=== PATIENT | female | born 2005 ===

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

== ENCOUNTER 2023-12-01 08:20 | Outpatient (REF) | payer OTHER, SELFPAY ==
--- NOTE | ~2023-12-01 | XR_ITS ---
EXAMINATION: XR KNEE, BILATERAL STANDING XR LATERAL AND SUNRISE VIEWS OF BILATERAL KNEES CLINICAL INFORMATION: Bilateral knee pain. COMPARISON: 02/19/2018 left knee. TECHNIQUE: AP standing as well as lateral and sunrise views of bilateral knees. FINDINGS: Left Knee: No significant joint effusion. Mild medial joint space narrowing. Alignment preserved. Right Knee: No significant joint effusion. Mild medial joint space narrowing. Alignment preserved. 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
--- NOTE | ~2023-12-01 | XR_ITS ---
EXAMINATION: XR KNEE, BILATERAL STANDING XR LATERAL AND SUNRISE VIEWS OF BILATERAL KNEES CLINICAL INFORMATION: Bilateral knee pain. COMPARISON: 02/19/2018 left knee. TECHNIQUE: AP standing as well as lateral and sunrise views of bilateral knees. FINDINGS: Left Knee: No significant joint effusion. Mild medial joint space narrowing. Alignment preserved. Right Knee: No significant joint effusion. Mild medial joint space narrowing. Alignment preserved. 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
--- NOTE | ~2023-12-01 | XR_ITS ---
EXAMINATION: XR KNEE, BILATERAL STANDING XR LATERAL AND SUNRISE VIEWS OF BILATERAL KNEES CLINICAL INFORMATION: Bilateral knee pain. COMPARISON: 02/19/2018 left knee. TECHNIQUE: AP standing as well as lateral and sunrise views of bilateral knees. FINDINGS: Left Knee: No significant joint effusion. Mild medial joint space narrowing. Alignment preserved. Right Knee: No significant joint effusion. Mild medial joint space narrowing. Alignment preserved. 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
== END 2023-12-01 08:21 | disposition home or self-care (01) ==
LOC: HO.HOSX 08:20
PROVIDERS: Visit Provider Orthopaedic Surgery
DX: M22.2X1 Patellofemoral disorders, right knee (principal); M22.2X2 Patellofemoral disorders, left knee
CPT/HCPCS: 73560; 73565; 99202

== ENCOUNTER 2023-12-01 13:40 | Outpatient (AMB) | payer OTHER, SELFPAY ==
--- NOTE | 2023-12-01 13:41 | MHC.OFFVIS ---
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 She complains of pain with daily activity, worse with using stairs or when she is at the gym. She also says she feels a clicking sensation in her knees, and at times that her kneecaps want to shift. She says her pain began when she started attending the gym last August. Overall her pain is mild. SHe has been doing squats and leg extension exercises in the gym. She denies injury. [facility] Surgical History S/P tonsillectomy Family History Mother No problems noted. Social History Household Members: Family Patient Tobacco Use Status: Never used Tobacco Review of Systems Const All systems reviewed & are unremarkable except as noted in HPI and below Physical Exam Const General: no acute distress, alert and awake Orientation/consciousness: patient oriented x3 HEENT Head: Yes normocephalic and Yes atraumatic Eyes EOM: EOMs intact bilaterally Resp Effort & Inspection: normal respiratory effort and able to speak in complete sentences Cardio Jugular venous distension: no JVD Skin General skin exam: turgor normal Rashes: no rashes Neuro General: patient oriented x3 Extrem Other: Full painless ROM bilateral knees Mild ligamentous laxity Mild lateral retropatellar ttp No effusion Neg step down Psych Appearance: grossly normal Affect: normal affect Attitude: cooperative Results Reviewed Results Reviewed: I personally reviewed relevant radiographs. Nl radiographs bilateral knees Assessment & Plan Assessment & Plan (1) Patellofemoral pain syndrome: Code(s): M22.2X9 - Patellofemoral disorders, unspecified knee Plan: Discussed findings. I recommend gym modifications. If pain worsens she will return to see me. Plan Scribed for Bernard Hernandez MD by Mitch Marcum, medical office technology instructor, on 12/01/23 at 2:00PM, EST. Orders: Orders XR knee LT 2V 12/01/23 M25.569 - Pain in unspecified knee XR knee standing BI 12/01/23 M25.569 - Pain in unspecified knee XR knee RT 2V 12/01/23 M25.569 - Pain in unspecified knee Coding Level of Care Code New Pt Level 3 (98317) Diagnoses Patellofemoral pain syndrome M22.2X9
== END 2023-12-01 15:16 | disposition home or self-care (01) ==
PROVIDERS: PCP Internal Medicine; Visit Provider Orthopaedic Surgery
DX: M22.2X1 Patellofemoral disorders, right knee (principal); M22.2X2 Patellofemoral disorders, left knee
CPT/HCPCS: 99202

== ENCOUNTER 2024-06-21 10:15 | Outpatient (AMB) | payer OTHER, SELFPAY ==
--- NOTE | 2024-06-21 10:50 | AM.OFFWIN_ITS ---
Intake Vital Signs 06/21/24 10:54 Height 5 ft 1 in Weight 120 lb BMI 22.7 BP 104/60 Blood Pressure Location Lt brachial Position Sitting Pulse 91 Pulse Source Pulse Oximeter Temp 98.4 F Temp Source Oral Pulse Oximetry (%) 99 Oxygen Delivery Method Room Air Intake Visit Reasons: constipation for 5 days Intake Note: pt c/o constipation x 5 days. Has not been able to pass bowel movement, even with laxative Patient Tobacco Use Status: Never used Tobacco Allergies No Known Allergies [No Known Allergies*] Allergy (Verified 06/21/24 10:58) Medication List - Last Reconciled 06/21/24 by Sharyn Cline NP medroxyprogesterone 150 mg IM [id number] Do you need a note to return to daycare/school/sports/work: No HPI constipation for 5 days HPI Details This note is constructed using voice recognition software. While every effort has been made to ensure accuracy, environmental conflict manager errors may have been included. The patient is a 18 year old female who presents to the clinic today with constipation. She has a longstanding GI history including having a colonoscopy at the age of 12. At 15 she required to do an at-home bowel cleanse due to several days of constipation. She reports that she is moving her bowels every day but it is very small and palate leg, and she would like to improve upon that. She also reports that she has having a full sensation, it is making her feel like she is no longer hungry. She denies fever, pain, diarrhea, nausea, vomiting, and blood from rectum. [facility] Surgical History S/P tonsillectomy Family History Mother No problems noted. Social History Household Members: Family Patient Tobacco Use Status: Never used Tobacco Review of Systems Const All systems reviewed & are unremarkable except as noted in HPI and below Physical Exam Vital Signs: Last Vital Signs Temp 98.4 F 06/21/24 10:54 Pulse 91 06/21/24 10:54 BP 104/60 06/21/24 10:54 Pulse Ox 99 06/21/24 10:54 Oxygen Delivery Method Room Air 06/21/24 10:54 BMI result Body Mass Index 22.7 Const General: cooperative, healthy appearing, comfortable, no acute distress and alert Orientation/consciousness: patient oriented x3 Limitations: no limitations Resp Effort & Inspection: normal respiratory effort and able to speak in complete sentences Auscultation: clear to auscultation bilaterally Cardio Jugular venous distension: no JVD Palpation: normal PMI Rate: regular rate Heart sounds: S1 normal heart sound present, S2 normal heart sound present, no click, no gallops, no murmurs and no rubs GI Inspection: Yes normal to inspection Palpation (GI): Soft to palpation and nontender Percussion: Yes normal to percussion Auscultation: no high pitched sounds and Hypoactive bowel sounds present Skin General skin exam: no rashes or lesions noted, elasticity normal and turgor normal Neuro General: patient oriented x3 Psych Appearance: grossly normal Mental Status: mental status grossly normal Speech and movement: Normal speech and movement present Affect: normal affect Assessment & Plan Assessment & Plan (1) Constipation: Code(s): K59.00 - Constipation, unspecified Qualifiers: Constipation type: unspecified constipation type Qualified Code(s): K59.00 - Constipation, unspecified Plan: Acute on chronic situation. Advised patient to try senna times 2 this evening followed by MiraLax bowel cleanse tomorrow with 1 8 oz glass every 15 minutes until completion 1 small bottle of MiraLax. Advised clear liquids during the day. Additionally patient should consider trial of Benefiber or Metamucil daily for increased fiber intake and increased hydration. Advised daily walks to facilitate. Patient may also benefit from future referral to GI should she continue to have these issues. Advised follow up with sudden, acute and worsening pain to abdomen, rectal bleeding. Plan See above for full details and plan. Coding Level of Care Code Est Pt Level 3 (46571) Diagnoses Constipation, unspecified constipation type K59.00 Constipation type: unspecified constipation type
[2024-06-21 10:54] VITALS: BP 104/60; PULSE 91; TEMP 36.9; O2SAT 99; BMI 22.7
== END 2024-06-21 12:06 | disposition home or self-care (01) ==
PROVIDERS: PCP Internal Medicine; Visit Provider Registered Nurse
DX: K59.00 Constipation, unspecified (principal)
CPT/HCPCS: 99213

== ENCOUNTER 2024-07-01 09:11 | Outpatient (AMB) | payer OTHER, SELFPAY ==
[2024-07-01 09:43] VITALS: BP 106/68; PULSE 97; TEMP 36.8; O2SAT 98; BMI 22.7
--- NOTE | 2024-07-01 09:43 | AM.OFFWIN_ITS ---
Intake Vital Signs 07/01/24 09:43 Height 5 ft 1 in Weight 120 lb BMI 22.7 BP 106/68 Blood Pressure Location Lt brachial Position Sitting Pulse 97 Pulse Source Pulse Oximeter Temp 98.3 F Temp Source Oral Pulse Oximetry (%) 98 Oxygen Delivery Method Room Air Intake Visit Reasons: EP Bruising all over, no reason ? Intake Note: pt c/o bruising all over. unknown reason Patient Tobacco Use Status: Never used Tobacco Allergies No Known Allergies [No Known Allergies*] Allergy (Verified 07/01/24 09:58) HPI HPI Comments History of Present Illness Details Patient is a 19-year-old female complaining of unexplained bruising that started the last few weeks. She states she is not injuring herself in any way but has multiple small bruises throughout her body. She denies any use of anticoagulants, antiplatelet agents (NSAIDS), glucocorticoids, antibiotics, SSRIs, excessive alcohol use, vitamin-E, garlic or gingko biloba. She denies any family history of any bleeding disorders, she denies any history of liver dysfunction. She states her father had the same thing happen and he ended up being diagnosed with Hodgkin's lymphoma so she is very concerned. ON LICENSE OF [facility] Surgical History S/P tonsillectomy Family History Mother No problems noted. Social History Household Members: Family Patient Tobacco Use Status: Never used Tobacco Review of Systems Const All systems reviewed & are unremarkable except as noted in HPI and below Physical Exam Vital Signs: Last Vital Signs Temp 98.3 F 07/01/24 09:43 Pulse 97 07/01/24 09:43 BP 106/68 07/01/24 09:43 Pulse Ox 98 07/01/24 09:43 Oxygen Delivery Method Room Air 07/01/24 09:43 BMI result Body Mass Index 22.7 Const General: cooperative, healthy appearing, comfortable, no acute distress and well developed Orientation/consciousness: patient oriented x3 Limitations: no limitations HEENT Head: Yes normal to inspection Eyes General: appearance normal, both eyes and all related structures Neck Neck: Yes normal visual inspection and Yes full ROM Resp Effort & Inspection: normal respiratory effort and able to speak in complete sentences Skin General skin exam: no rashes or lesions noted and ecchymosis (several small areas of ecchymosis on legs and arms, 0.5cm to 1cm round) Neuro General: patient oriented x3 Extrem General: Yes normal to inspection Assessment & Plan Assessment & Plan (1) Multiple bruises: Code(s): T07.XXXA - Unspecified multiple injuries, initial encounter Plan: Ruled out medication induced, does not appear to be any family history or personal history of bleeding disorders or liver dysfunction. Sent message to patient's PCP for further workup. Plan See above Coding Level of Care Code Est Pt Level 3 (13366) Diagnoses Multiple bruises T07.XXXA
== END 2024-07-01 10:40 | disposition home or self-care (01) ==
PROVIDERS: PCP Internal Medicine; Visit Provider Physician Assistant
DX: T07.XXXA Unspecified multiple injuries, initial encounter (principal)
CPT/HCPCS: 99213

== ENCOUNTER 2024-10-14 16:33 | Outpatient (AMB) | payer OTHER, SELFPAY ==
--- NOTE | 2024-10-14 16:45 | MHC.PC.OV ---
Vital Signs 10/14/24 16:53 Height 5 ft 1 in Weight 125 lb BMI 23.6 BP 90/72 Blood Pressure Location Lt brachial Position Sitting Intake Visit Reasons: establish care Intake Note: Patient here to establish care Clinical Trials Nurse Required: No Accompanied by: Self / Same As Patient Allergies No Known Allergies [No Known Allergies*] Allergy (Verified 10/14/24 17:16) Medication List - Last Reconciled 10/14/24 by Janet Castillo MD No Known Home Meds Tobacco use date assessed: 10/14/24 Dental Screening Dental Screen Date: 10/14/24 Did you have a dental visit in the last 12 months?: Yes Did you have a dental problem in the last 6 months where you did not have access to dental care?: No Was dental information given to patient?: Patient has dentist HPI HPI Comments History of Present Illness Details The patient is a 19-year-old female presenting with the need to establish care and plan for a future physical examination. She has a history of mild anemia identified in 2020 which was asymptomatic and untreated. The patient has a past medical history of constipation, experiencing irregular bowel movements and requiring colonoscopy at age 12 which was normal. Benefiber and probiotics were recommended previously, showing fluctuating effectiveness. She expresses worries about familial polyps. The patient scored 3 on the PHQ-9, indicating minimal depression primarily due to sleep disruptions and fatigue. She acknowledges concurrent anxiety. Headaches, resembling migraines, cause eye strain and front bilateral pressure, exacerbated by computer use, presenting most days within weeks. Relief is obtained via Excedrin, with up to nine episodes monthly. 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 [facility] Surgical History History of wisdom tooth extraction S/P tonsillectomy Family History Mother Hypertension Pre-diabetes Anemia Father Hypertension Social History Household Members: Family Housing: House Alcohol intake: never Patient Tobacco Use Status: Never used Tobacco e-Cigarette/Vaping Use: Never Used Second Hand Smoke Exposure: No service: No Current occupational status: employed Current occupational exposures/hazards: No Cognitive needs: No Hearing needs: No Vision needs: No Questionnaire PHQ-9 Over the last 2 weeks, how often have you been bothered by any of the following problems? 1. Little interest or pleasure in doing things: not at all 2. Feeling down, depressed, or hopeless: not at all 3. Trouble falling or staying asleep, or sleeping too much: several days 4. Feeling tired or having little energy: more than half the days 5. Poor appetite or overeating: not at all 6. Feeling bad about yourself - or that you are a failure or have let yourself or your family down: not at all 7. Trouble concentrating on things, such as reading the newspaper or watching television: not at all 8. Moving or speaking so slowly that other people could have noticed. Or the opposite - being so fidgety or restless that you have been moving around a lot more than usual: not at all 9. Thoughts that you would be better off or of hurting yourself in some way: not at all Total score: 3 Depression Screening Interpretation: Positive Depression Screening Follow-up: Existing condition and Follow-up Visit Requested Depression Screening Done: Yes 79973 - PHQ-9 Billing: Yes Source: Developed by Drs. Mainor Fountain, Maite Polanco, Teja Pearson and colleagues, with an educational miller from [employer]. Thrive Questionnaire Date Thrive assessed: 10/07/24 I am a: Patient What is your living situation today?: I have a steady place to live Within the past 12 months, did the food you bought not last and you didn't have the money to get more?: Never true Within the past 12 months, did you worry whether your food would run out before you got money to buy more?: Never true Do you have trouble paying for medicines?: No Do you have trouble getting transportation to medical appointments?: No Do you have trouble paying your heating and electricity bill?: No Do you have trouble taking care of your child, family member or friend?: No Do you have trouble with day-to-day activities such as bathing, preparing meals, shopping, managing finances, etc.?: No Are you currently unemployed and looking for a job?: No Are you interested in more education?: No Please select the resources that you would like help with: None Currently or been in a relationship where the following occur: No concerns reported THRIVE Score: 0 AUDIT C Alcohol Use Questionnaire (AUDIT-C) 1. How often do you have a drink containing alcohol?: Never Total Score: 0 Score Reviewed/Action Taken: No ARI-7 AMB Questionnaire ARI-7 Date ARI - 7 assessed: 10/14/24 Feeling nervous, anxious, or on edge: 1 = Several days Not being able to stop or control worryin = Not at all Worrying too much about different things: 1 = Several days Trouble relaxin = Nearly every day Being so restless that it is hard to sit still: 0 = Not at all Becoming easily annoyed or irritable: 1 = Several days Feeling afraid as if something awful might happen: 0 = Not at all Total ARI-7 score (0-4 normal; 5-9 mild; 10-14 moderate; 15-21 severe): 6 Source: Developed by Drs. Mainor Fountain, Maite Polanco, Teja Pearson and colleagues, with an educational miller from [employer]. ARI-7 Assessment Billing ARI-7 Assessment Tool: ARI-7 Assessment 01002 Review of Systems Const All systems reviewed & are unremarkable except as noted in HPI and below Card Denies chest pain at rest, Denies chest pain with activity, Denies edema, Denies irregular heart rhythm, Denies claudication, Denies dyspnea, Denies dyspnea on exertion, Denies orthopnea, Denies paroxysmal nocturnal dyspnea and Denies slow heart rate Resp Denies cough, Denies dyspnea and Denies dyspnea on exertion GI Denies abdominal pain, Denies change in bowel habits, Denies excessive flatus, Denies nausea and Denies vomiting Denies urinary incontinence, Denies urinary hesitancy and Denies urinary urgency Musc Denies atrophy, Denies deformity and Denies limited range of motion Skin/Breast Denies bleeding lesions, Denies changing lesions and Denies rash Physical exam (Primary Care) Vital Signs: Last Vital Signs BP 90/72 10/14/24 16:53 BMI result Body Mass Index 23.6 Tobacco/Smoking Status: Tobacco use Status Tobacco use date assessed 10/14/24 10/14/24 16:54 Patient Tobacco Use Status Never used Tobacco 10/14/24 16:54 e-Cigarette/Vaping Use Never Used 10/14/24 16:54 PHQ-9: PHQ-9 Score PHQ-9: Total score 3 10/14/24 17:21 Depression Screening Interpretation: Positive Depression Screening Follow-up: Existing condition and Follow-up Visit Requested Thrive Assessment: Date of Thrive Assessment Date Thrive assessed 10/07/24 10/14/24 16:54 Currently or been in a relationship where the following occur: No concerns reported Resp Effort & Inspection: normal respiratory effort Auscultation: clear to auscultation bilaterally Cardio Jugular venous distension: no JVD Rate: regular rate Rhythm: regular rhythm Heart sounds: S1 normal heart sound present and S2 normal heart sound present GI Inspection: Yes normal to inspection Palpation (GI): Soft to palpation and nontender Auscultation: normal bowel sounds Extrem General: Yes full ROM Office Procedures Flu Questionnaire Does the patient have a severe egg allergy?: No Does the patient have severe life threatening allergies?: No Does the patient have a fever or illness today?: No Has the patient ever had Guillain-Herndon Syndrome?: No Has the patient ever had any past reaction to a flu shot?: No Immunizations Fluarix Triv 3902-0498 (PF) 45 mcg (15 mcg x 3)/0.5 mL IM syringe Performing Provider: Janet Castillo MD [facility] Administered by: TARUN Starr on 10/14/24 17:54 Dose Route Admin Location Dispensed Lot Number Expiration Date 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 0.5 mL IM Left Deltoid 0.5 mL [id number] 05/23/25 [id number] [facility] VIS Given Date VIS Provided VIS Publication Date 10/14/24 Single Vaccine 21 Eligibility Eligibility Date Funding Source Not [facility] Eligible 10/14/24 Private Coding Level of Care Code New Pt Level 4 (67118) Complex EM visit Add On G2211 Diagnoses Fatigue R53.83 Migraines G43.909 Anemia D64.9 Chronic idiopathic constipation K59.04 Insomnia G47.00 Additional Codes ARI-7 Assessment Billing - ARI-7 Assessment Tool: ARI-7 Assessment 17395 ([id number]) PHQ-9 - 24934 - PHQ-9 Billing: Yes ([id number]) Time Spent (min) 23 Assessment & Plan Assessment & Plan (1) Fatigue: Code(s): R53.83 - Other fatigue Category: Medical (2) Migraines: Code(s): G43.909 - Migraine, unspecified, not intractable, without status migrainosus Category: Medical (3) Anemia: Code(s): D64.9 - Anemia, unspecified Category: Medical (4) Chronic idiopathic constipation: Code(s): K59.04 - Chronic idiopathic constipation Category: Medical (5) Insomnia: Code(s): G47.00 - Insomnia, unspecified Category: Medical Plan - Mild Anemia: Plan to check hemoglobin and iron levels. - Constipation: Consider daily magnesium supplementation for symptom alleviation. - Minimal Depression and Anxiety: Monitor and address if symptoms escalate. - Migraine Headaches: Prescribe magnesium; consider nighttime amitriptyline if magnesium is insufficient. - Sleep Disorders: Investigate potential underlying causes, including thyroid function. Patient was informed and verbally consented to the use of an ambient scribe for clinic note documentation during this visit. I discussed the management and treatment options available for the patient's complaints and preventative care needs. Regarding her migraine headaches, I recommended magnesium supplementation, and we discussed the potential benefit of low-dose amitriptyline nightly for migraine prevention and insomnia. I explained its functions and side effects, advising to start with magnesium and add amitriptyline if needed. We also reviewed the necessity of future blood work, emphasizing hemoglobin, iron, vitamin D, vitamin B12 assessments, along with routine monitoring of thyroid, sugar, kidneys, liver, and cholesterol levels. We agreed to schedule the physical examination at a subsequent visit, ensuring screenings and vaccinations are updated. Orders: Orders Influenza [id number] Immunization Today Z23 - Encounter for immunization Complete Blood Count Auto Diff Today D64.9 - Anemia, unspecified IRON PROFILE Today D64.9 - Anemia, unspecified Lipid Panel Today Z82.49 - Family history of ischemic heart disease and other diseases of the circulatory system Thyroid Stimulating Hormone Today R53.83 - Other fatigue Comprehensive [place]. Panel Fast Today R53.83 - Other fatigue Medications: New sumatriptan succinate do not exceed 8 doses per 24 hrs 25 mg PO Q2-4H PRN 9 tabs 0RF migraine headache 30 days G43.909 - Migraine, unspecified, not intractable, without status migrainosus Fluarix Triv [id number] (PF) (flu vacc [id number] 6mos up(PF)) 0.5 mL IM ONCE 0.5 mL 0RF NS Z23 - Encounter for immunization magnesium oxide 400 mg PO BEDTIME 30 tabs 0RF 30 days amitriptyline 10 mg PO BEDTIME 30 tabs 0RF 30 days G43.909 - Migraine, unspecified, not intractable, without status migrainosus Patient Instructions: - Undergo scheduled lab tests fasting for eight hours prior. - Consider magnesium supplementation for headaches and constipation. - Monitor symptoms and discuss initiating amitriptyline if magnesium is ineffective. - Schedule a follow-up for a comprehensive physical examination, screenings, and vaccinations. - Use Excedrin for migraine relief as needed. - Maintain a log of headache frequency and severity.
[2024-10-14 16:53] VITALS: BP 90/72; BMI 23.6
== END 2024-10-14 17:30 | disposition home or self-care (01) ==
PROVIDERS: PCP Internal Medicine; Visit Provider Internal Medicine
DX: R53.83 Other fatigue (principal); G43.909 Migraine, unspecified, not intractable, without status migrainosus; D64.9 Anemia, unspecified; K59.04 Chronic idiopathic constipation; G47.00 Insomnia, unspecified; Z23 Encounter for immunization

== ENCOUNTER → 2024-10-14 16:33 | Outpatient (BNVA) | payer OTHER, SELFPAY | PROVIDERS: PCP Internal Medicine; Visit Provider Internal Medicine | DX: Z23 Encounter for immunization (principal); R53.83 Other fatigue; G43.909 Migraine, unspecified, not intractable, without status migrainosus; D64.9 Anemia, unspecified; K59.04 Chronic idiopathic constipation; G47.00 Insomnia, unspecified | CPT/HCPCS: 90471; 90656; 96127; 99202 ==

== ENCOUNTER 2024-11-26 10:18 | Outpatient (REF) | payer OTHER, SELFPAY ==
[2024-11-26 10:32] LABS: MANUAL DIFF FLAG NO
[2024-11-26 10:37] LABS: Basophils Percent Auto 0.3 % (0-2); Eosinophils Percent Auto 0.3 % (0-4); Hematocrit 39.4 % (37.0-47.0); Hemoglobin 12.9 g/dl (12.0-16.0); Imm Gran Abs Auto 0.05 X10*3/uL (0.00-0.03); Imm Gran Pct Auto 0.6 % (0.0-0.4); Lymphocytes Absolute Auto 2.7 X10*3/uL (1.2-4.9); Lymphocytes Percent Auto 31.3 % (20-40); Mean Corpuscular HGB Conc 32.7 g/dl (31.0-35.0); Mean Corpuscular Hemoglobin 28.4 pg (27.0-33.0); Mean Corpuscular Volume 86.8 fL (80.0-98.0); Mean Platelet Volume 10.1 fL (9.4-12.3); Monocytes Absolute Auto 0.6 X10*3/uL (0.1-1.2); Monocytes Percent Auto 6.5 % (2-11); Neutrophils Absolute Auto 5.3 x10*3/uL (2.0-8.3); Platelet Count 279 X10*3/uL (160-400); Red Blood Count 4.54 X10*6/uL (4.20-5.50); Red Cell Distribution Width 11.9 % (11.0-16.0); White Blood Count 8.8 X10*3/uL (4.8-10.8)
[2024-11-26 11:17] LABS: Alanine Aminotransferase 40 U/L (0-31); Albumin Level 3.8 g/dL (3.5-5.0); Alkaline Phosphatase 67 U/L (39-117); Anion Gap 8 (12-20); Aspartate Amino Transferase 21 U/L (5-31); Bilirubin Total 0.3 mg/dL (0.0-1.0); Blood Urea Nitrogen 10 mg/dL (9-16); Calcium 8.8 mg/dL (8.4-10.2); Carbon Dioxide 24 mmol/L (22-29); Chloride 110 mmol/L (96-108); Cholesterol 145 mg/dL (<200); Estimated Glomerular Filt Rate > 60; Glucose Fasting 84 mg/dL (60-99); HDL Cholesterol 39 mg/dL (>40); Iron 44 mcg/dL (30-160); LDL Cholesterol Calculated 93 mg/dL (<100); Percent Iron Saturation 14 % (15-50); Potassium 4.4 mmol/L (3.3-5.1); Sodium 138 mmol/L (135-145); Total Iron Binding Capacity 307 mcg/dL (228-428); Total Protein 6.6 g/dL (6.5-8.0); Triglycerides 68 mg/dL (<150); Unsaturated Iron Binding 263 ug/dL
[2024-11-26 11:37] LABS: Thyroid Stimulating Hormone 2.79 uIU/mL (0.32-4.0)
== END 2024-11-26 10:19 | disposition home or self-care (01) ==
LOC: HO.LAB 10:18
PROVIDERS: PCP Internal Medicine; Visit Provider Internal Medicine
DX: D64.9 Anemia, unspecified (principal); Z82.49 Family history of ischemic heart disease and other diseases of the circulatory system; R53.83 Other fatigue
CPT/HCPCS: 36415; 80053; 80061; 83540; 84443; 85025

== ENCOUNTER 2025-03-03 16:36 | Outpatient (AMB) | payer OTHER, SELFPAY ==
[2025-03-03 16:41] VITALS: BP 110/70; BMI 23.6
--- NOTE | 2025-03-03 16:41 | A.OFFPC_ITS ---
Vital Signs 03/03/25 16:41 Height 5 ft 1 in Weight 125 lb BMI 23.6 BP 110/70 Blood Pressure Location Lt brachial Position Sitting Intake Visit Reasons: PHYSICAL Intake Note: Patient here for a physical exam Family Services Assistant Required: No Accompanied by: Self / Same As Patient Allergies No Known Allergies [No Known Allergies*] Allergy (Verified 03/03/25 16:51) Medication List - Last Reconciled 03/03/25 by Janet Castillo MD amitriptyline 10 mg PO BEDTIME 30 days magnesium oxide 400 mg PO BEDTIME 30 days sumatriptan succinate 25 mg PO Q2-4H PRN 30 days Tobacco use date assessed: 03/03/25 Dental Screening Dental Screen Date: 03/03/25 Did you have a dental visit in the last 12 months?: Yes Did you have a dental problem in the last 6 months where you did not have access to dental care?: No Was dental information given to patient?: Patient has dentist HPI HPI Comments History of Present Illness Details The patient is a 20-year-old female presenting for her physical exam with episodes of migraine headaches and concerns regarding elevated liver enzymes. She suffers from longstanding migraines, predominantly on the left side of the head, which sometimes extend to the ear. Medication, including amitriptyline and sumatriptan, has reduced migraine frequency and severity but she still experiences some persistent sharp pains. This condition is familial, as both her mother and grandmother have migraines. Post-, the patient noted elevated liver enzymes. Historical data from 2019 indicates normal liver enzyme levels, but recent slight elevations were observed, possibly due to hepatic steatosis. Other laboratory results, like normal kidney function and cholesterol levels, are unremarkable. She denies symptoms like jaundice that might signify significant liver pathology. Her medical history includes a tonsillectomy and wisdom tooth extraction. The patient has no history of smoking or alcohol use and denies depression. - Received Tdap vaccination in 2021 - Last Pap smear completed last summer; results negative with HPV negative - Family history of anemia, hypertension , and diabetes discussed - Annual gynecological examination advis ed - Recommended ultrasound of the liver du e to elevated enzymes [facility] Surgical History History of wisdom tooth extraction S/P tonsillectomy Family History Mother Hypertension Pre-diabetes Anemia Father Hypertension Social History Household Members: Family Housing: House Alcohol intake: never Patient Tobacco Use Status: Never used Tobacco e-Cigarette/Vaping Use: Never Used Second Hand Smoke Exposure: No service: No Current occupational status: employed Current occupational exposures/hazards: No Cognitive needs: No Hearing needs: No Vision needs: No Questionnaire PHQ-9 Over the last 2 weeks, how often have you been bothered by any of the following problems? 1. Little interest or pleasure in doing things: not at all 2. Feeling down, depressed, or hopeless: not at all 3. Trouble falling or staying asleep, or sleeping too much: not at all 4. Feeling tired or having little energy: several days 5. Poor appetite or overeating: not at all 6. Feeling bad about yourself - or that you are a failure or have let yourself or your family down: not at all 7. Trouble concentrating on things, such as reading the newspaper or watching television: not at all 8. Moving or speaking so slowly that other people could have noticed. Or the opposite - being so fidgety or restless that you have been moving around a lot more than usual: not at all 9. Thoughts that you would be better off or of hurting yourself in some way: not at all Total score: 1 Depression Screening Interpretation: Negative Depression Screening Done: Yes 18005 - PHQ-9 Billing: Yes Source: Developed by Drs. Mainor Fountain, Maite Polanco, Teja Pearson and colleagues, with an educational miller from [employer]. Thrive Questionnaire Date Thrive assessed: 02/24/25 I am a: Patient What is your living situation today?: I have a steady place to live Within the past 12 months, did the food you bought not last and you didn't have the money to get more?: Never true Within the past 12 months, did you worry whether your food would run out before you got money to buy more?: Never true Do you have trouble paying for medicines?: No Do you have trouble getting transportation to medical appointments?: No Do you have trouble paying your heating and electricity bill?: No Do you have trouble taking care of your child, family member or friend?: No Do you have trouble with day-to-day activities such as bathing, preparing meals, shopping, managing finances, etc.?: No Are you currently unemployed and looking for a job?: No Are you interested in more education?: No Please select the resources that you would like help with: None Currently or been in a relationship where the following occur: No concerns reported THRIVE Score: 0 AUDIT C Alcohol Use Questionnaire (AUDIT-C) 1. How often do you have a drink containing alcohol?: Never Total Score: 0 Score Reviewed/Action Taken: No ARI-7 AMB Questionnaire ARI-7 Date ARI - 7 assessed: 03/03/25 Feeling nervous, anxious, or on edge: 0 = Not at all Not being able to stop or control worryin = Not at all Worrying too much about different things: 0 = Not at all Trouble relaxin = Not at all Being so restless that it is hard to sit still: 0 = Not at all Becoming easily annoyed or irritable: 1 = Several days Feeling afraid as if something awful might happen: 0 = Not at all Total ARI-7 score (0-4 normal; 5-9 mild; 10-14 moderate; 15-21 severe): 1 Source: Developed by Drs. Mainor Fountain, Maite Polanco, Teja Pearson and colleagues, with an educational miller from [employer]. ARI-7 Assessment Billing ARI-7 Assessment Tool: ARI-7 Assessment 24666 Review of Systems Const All systems reviewed & are unremarkable except as noted in HPI and below Card Denies chest pain at rest, Denies chest pain with activity, Denies edema, Denies irregular heart rhythm, Denies claudication, Denies dyspnea, Denies dyspnea on exertion, Denies orthopnea, Denies paroxysmal nocturnal dyspnea and Denies slow heart rate Resp Denies cough, Denies dyspnea and Denies dyspnea on exertion GI Denies abdominal pain, Denies change in bowel habits, Denies excessive flatus, Denies nausea and Denies vomiting Denies urinary incontinence, Denies urinary hesitancy and Denies urinary urgency Musc Denies abnormal gait, Denies atrophy, Denies deformity and Denies limited range of motion Skin/Breast Denies bleeding lesions, Denies changing lesions and Denies rash Neuro Denies abnormal gait and Denies lack of coordination Physical exam (Primary Care) Vital Signs: Last Vital Signs BP 110/70 03/03/25 16:41 BMI result Body Mass Index 23.6 Tobacco/Smoking Status: Tobacco use Status Tobacco use date assessed 03/03/25 03/03/25 16:47 Patient Tobacco Use Status Never used Tobacco 03/03/25 16:47 e-Cigarette/Vaping Use Never Used 03/03/25 16:47 PHQ-9: PHQ-9 Score PHQ-9: Total score 1 03/03/25 16:54 Depression Screening Interpretation: Negative Thrive Assessment: Date of Thrive Assessment Date Thrive assessed 02/24/25 03/03/25 16:47 Currently or been in a relationship where the following occur: No concerns reported HENMT Head: Yes normal to inspection, Yes normocephalic and Yes atraumatic Ears: external ears normal Eyes General: appearance normal, both eyes and all related structures Eyelids: Yes eyelids normal Conjunctivae: conjunctivae normal Neck Neck: Yes normal visual inspection and Yes supple Resp Effort & Inspection: normal respiratory effort Auscultation: clear to auscultation bilaterally Cardio Jugular venous distension: no JVD Rate: regular rate Rhythm: regular rhythm Heart sounds: S1 normal heart sound present and S2 normal heart sound present GI Inspection: Yes normal to inspection Palpation (GI): Soft to palpation and nontender Auscultation: normal bowel sounds Skin General skin exam: no rashes or lesions noted Neuro General: no focal motor deficits Extrem General: Yes full ROM Psych Appearance: grossly normal Coding Level of Care Code Est Pt Level 3 (90315) Est Pt Prev Care 18-39y(65794) Diagnoses Physical exam Z00.00 Transaminitis R74.01 Migraines G43.909 Additional Codes ARI-7 Assessment Billing - ARI-7 Assessment Tool: ARI-7 Assessment 52485 ([id number]) PHQ-9 - 96630 - PHQ-9 Billing: Yes ([id number]) Time Spent (min) 34 Assessment & Plan Assessment & Plan (1) Physical exam: Code(s): Z00.00 - Encounter for general adult medical examination without abnormal findings Category: Medical (2) Transaminitis: Code(s): R74.01 - Elevation of levels of liver transaminase levels Category: Medical (3) Migraines: Code(s): G43.909 - Migraine, unspecified, not intractable, without status migrainosus Category: Medical Plan Today, I addressed the patient's migraine management and elevated liver enzymes. She continues amitriptyline and sumatriptan for migraine control, though she experiences infrequent sharp pains. I initiated a referral to Neurology considering her migraine history and family history. Regarding the elevated liver enzymes noted post-, I recommended an ultrasound and repeating liver function tests. Persistent enzyme elevations may need further evaluation through gastroenterology. Regular health screenings remain crucial for the patient's overall health maintenance. Patient was informed and verbally consented to the use of an ambient scribe for clinic note documentation during this visit. I discussed the management of the patient's migraines and elevated liver enzyme levels. Her ongoing migraine treatment with amitriptyline and sumatriptan has provided relief and was discussed further. Considering her family history, I recommended a Neurology referral. For her liver enzyme issue, we reviewed the elevation history post- and discussed the minimal elevation indicating possible hepatic steatosis. I recommended an ultrasound and repeat liver panel. I discussed potential future steps, such as a gastroenterology referral if elevations persist. I emphasized scheduling follow-ups and maintaining routine health checks to monitor these health issues effectively. Orders: Orders US abdomen parker w elastography 03/03/25 R74.01 - Elevation of levels of liver transaminase levels Liver Panel 03/03/25 R74.01 - Elevation of levels of liver transaminase levels Referrals Neurology Referral G43.909 - Migraine, unspecified, not intractable, without status migrainosus Patient Instructions: - Continue current medications as prescribed for migraine management. - Attend referral appointment with Neurology. - Schedule an ultrasound of the liver. - Return for follow-up to evaluate liver enzyme test results. - Maintain regular health screenings and gynecological exams. - Report any new symptoms such as jaundice or significant changes in headache patterns promptly.
--- OUTSIDE RECORDS SUMMARY | 2025-03-03 18:07 | XMS_ITS | Clinical Summary ---
Author Organization [facility] [address] [facility] Address [address] [place] [phone] Phone Care Team Providers Care Cut Roll Machine Offbearer Name Role Phone Janet Castillo MD Primary Care Provider [phone] Allergies No known active allergies Medications cholecalciferol (VITAMIN D-3) 50 mcg (2,000 unit) capsule Take 1 Tablet by mouth daily. 3 Active vit no.[id number] ( Plus Vitamin-Mineral) 27 mg iron- 1 mg tablet Take 1 tablet by mouth daily. 1 Active amitriptyline (ELAVIL) 10 mg tablet Take by mouth at bedtime. Active norethindrone-ethi nyl estradiol (NECON) 0.5-35 mg-mcg per tabletIndications: Encounter for other general counseling or advice on contraception Take 1 tablet by mouth 1 (one) time each day. 84 tablet 3 5 02/10/20 26 Active norethindrone-ethi nyl estradiol (NECON) 0.5-35 mg-mcg per tabletIndications: Encounter for other general counseling or advice on contraception Take 1 tablet by mouth 1 (one) time each day. 28 tablet 2 4 02/11/20 25 Discontinu ed(Reorder ) Active Problems Problem Noted Date Diagnosed Date Bacterial vaginosis 08/08/2023 Overview (10/11/2024): Last Assessment & Plan: Treate with Flagyl PO Vaginal discharge 08/08/2023 Overview (10/11/2024): Last Assessment & Plan: Some concern for trichomonas on microscopy and thus antigen sent. Flagyl will treat either. Vulvar irritation 08/08/2023 Overview (10/11/2024): Last Assessment & Plan: Apply Vaseline until healed. Anxiety state 10/29/2021 Overview (10/11/2024): Diagnosed during middle school, no medication no therapist. 12/31/2021- stable Encounters Date Type Department Care Team Description 02/10/2025 3:45 PM EDT Office Visit Obstetrics and Gynecology [address] [phone] Elizabeth Arellano, ESTHER Encounter for other general counseling or advice on contraception (Primary Dx); Surveillance for control, oral contraceptives from Last 3 Months Immunizations Name Administration Dates Next Due DTaP (Infanrix) 6wks to less than 7yo ,04/06/2004,2003,06/29,2003 [id number] (Pentacel) 2mo to less than 5yo 04/06/2004,2003,2003,04/14 HPV, Quadrivalent 03/10/2018,01/30/2017 Hepatitis A Pediatric (Havri x; Vaqta) 12mo to less than 19yo 05/21/2012,04/30/2011 Hepatitis B Pediatric (Enger ix B; Recombivax HB) to less than 20 yo 07/02/2004,2003,2003 IPV Inactivated polio (Ipol) 6wks and older 02/16/2007,02/02/2004,2003,03/11 Influenza trivalent, 0.5mL, preservative free (Fluarix; FluLaval; Fluzone) ages 6mo and older (Afluria) 3 years and older 12/28/2012 Influenza trivalent, with pr eservative (Fluzone; Afluria) 6mo and older 08/31/2004 MMR, measles mumps and rubel la Live (Priorix; M-M-R II) 12mo and older 02/16/2007,07/04/2004 Meningococcal Conjugate (Men veo) MenACWY 11yo to less than 19 yo 03/25/2019,01/30/2017 Pneumococcal conjugate 13 va lent (Prevnar 13, PCV13) 2mo and older 07/12/2004,2003,2003 Tdap Tetanus diptheria acell ular pertussis (Boostrix; Adacel) 7yo and older 02/25/2022,05/09/2015 Varicella live (Varivax) 12m o and older 02/16/2007,02/02/2004 Surgical History Surgery Date Site/Laterality Comments TONSILLECTOMY ADENOIDECTOMY, BILATERAL MYRINGOTOMY AND TUBES PROCEDURE: [place] TONSILLECTOMY & ADENOIDECTOMY <AGE 12 WISDOM TOOTH EXTRACTION PROCEDURE: HISTORICAL WISDOM TEETH EXTRACTION Medical History Medical History Date Comments Anxiety state DX:Anxiety state 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) Family History Medical History Relation Name Comments No Known Problems Brother Hypertension Father Other cancer Father Hodgekins Lymph rommel Colon cancer Maternal Grandfather Hypertension Maternal Grandfather Arthritis Maternal Grandmother Stomach cancer Maternal Grandmother No Known Problems Mother Diabetes Paternal Grandmother Breast cancer Neg Hx Ovarian cancer Neg Hx Prostate cancer Neg Hx Relation Name Status Comments Brother Alive Father Alive Maternal Grandfather Alive Maternal Grandmother Alive Mother Alive Paternal Grandfather Alive Paternal Grandmother Alive Social History Tobacco Use Types Packs/Day Years Used Date Smoking Tobacco: Never Smokeless Tobacco: Never Tobacco Cessation:Counseling Given: Not Answered Alcohol Use Standard Drinks/Week Comments No 0 (1 standard drink = 0.6 oz pur e alcohol) Housing Instability Answer Date Recorde d Are you worried that in the next 2 months you may not have stable housing? No 11/11/2024 Food Access & Nutrition Answer Date Rec orded Do you have access to a vari ety of food including fruits and vegetables? Yes 11/11/2024 Access to Healthcare Answer Date Record ed Within the last 3 months, ho w many times did you visit the emergency department for your medical care? 0 11/11/2024 Health Literacy Answer Date Recorded How often do you need to hav e someone help you when you read instructions, pamphlets, or other written material from your doctor or pharmacy? Never 11/11/2024 Caregiver: How often do you need to have someone help you when you read instructions, pamphlets, or other written material from your doctor or pharmacy? Not on file 11/11/2024 Financial Risk Answer Date Recorded How hard is it for you to pa y for the very basics like food, housing, medical care, and air conditioning / heating? Not very hard 11/11/2024 Transportation Answer Date Recorded Has the lack of transportati on kept you from meetings, work, or from getting things needed for daily living? No Has the lack of transportati on kept you from medical appointments or from getting medications? No 11/11/2024 Social Isolation Answer Date Recorded How often do you feel lonely or isolated from th ose around you? Rarely 11/11/2024 Food Risk Answer Date Recorded Within the past 12 months we worried whether our food would run out before we got money to buy more. Never true 11/11/2024 Within the past 12 months th e food we bought just didn't last and we didn't have money to get more. Never true 11/11/2024 Dependent Care Answer Date Recorded Do you need help finding or paying for care for your loved ones. For example, child development assistant or elderly care for an older adult? No 11/11/2024 Education Answer Date Recorded Do you think completing more education or training, like finishing a GED, going to college, or learning a trade, would be helpful for you? N/A 11/11/2024 Employment and Income Answer Date Recor ded During the last four weeks, have you been actively looking for work? No 11/11/2024 Living Situation Answer Date Recorded What is your living situation? 1 2024 Comments No Sex and Gender Information Value Date Recorded Sex Assigned at Not on file Legal Sex Female 1:54 PM EST Gender Identity Not on file Sexual Orientation Not on file Obstetrics History Para Term AB IAB SAB Ectopic Multiple Livin g Live Births 1 1 1 0 0 1 1 Date Outcome GA Total Labor Labor/2nd/3rd Weight Sex Type Anes PTL Lois A1 A5 Name Clin 2021 Term F Vag-S pont Living Last Filed Vital Signs Vital Sign Reading Time Taken Comments Blood Pressure 97/68 02/10/2025 3:51 PM EDT Pulse 95 02/10/2025 3:51 PM EDT Temperature - - Respiratory Rate - - Oxygen Saturation - - Inhaled Oxygen Concentration - - Weight 56.7 kg (125 lb) 02/10/2025 3:51 PM EDT Height 154.9 cm (5' 1 ) 11/12/2024 11:23 AM EST Body Mass Index 23.62 11/12/2024 11:23 AM EST Plan of Treatment Health Maintenance Due Date Last Done Comments Meningococcal B Vaccine (1 of 2 - Standard) 2019 COVID-19 Vaccine () 07/25/2024 11/29/2021, 04/18/2021, 03/21/2021 Gonorrhea/Chlamydia Screening 09/23/2025 09/23/2024 Social Influencers of Health Screening 11/11/2025 11/11/2024 Depression Screening 02/09/2026 02/09/2025 Cervical Cancer Screening: Pap Smear 05/05/2027 05/05/2024, 05/05/2024, 05/05/2024 DTaP,Tdap,and Td Vaccines (8 - Td or Tdap) 02/26/2032 02/25/2022, 05/09/2015, 02/16/2007, Additional history exists HIB Vaccines Completed 04/06/2004, 09/24, 2003, Additional history exists Pneumococcal Vaccine: Pediatrics (0 to 5 Years) and At-Risk Patients (6 to 64 Years) Completed 07/12/2004, 2003, 2003 IPV Vaccines Completed 02/16/2007, 03/24, 02/02/2004, Additional history exists MMR Vaccines Completed 02/16/2007, 07/04/2004 Varicella Vaccines Completed 02/16/2007, 02/02/2004 Hepatitis A Vaccines Completed 05/21/2012, 04/30/20 11 HPV Vaccines Completed 03/10/2018, 01/30/2017 Meningococcal ACWY Vaccine Completed 03/25/2019, HIV Screening Completed 10/29/2021 Hepatitis C Screening Completed 10/29/2021 Hepatitis B Vaccines Completed 12/14/2021, 11/02/2021, 07/02/2004, Additional history exists Influenza Vaccine Completed 10/14/2024, , 12/28/2012, Additional history exists RSV Immunization Patients Under 20 months Aged Out No longer eligible based on patient's age to complete this topic Procedures Procedure Name Priority Date/Time Associated Diagnosis Comments GONORRHEA/CHLAMYDIA SCRREENING Routine 09/23/2024 HPV Routine 05/05/2024 HEPATITIS C SCREENING Routine 10/29/2021 HIV SCREENING Routine 10/29/2021 from Last 3 Months or Most Recently Relevant to Health Maintenance Results * Gonorrhea/Chlamydia Screening (09/23/2024) Gonorrhea/Chla mydia Screening Abstracted [facility] Provider MD HEALTH MAINTENANCE Final Result * Cervical Cancer Screening: HPV (05/05/2024) Pathologist [facility] Cervical Cancer Screening: HPV No Interpretation , Abstracted [facility] Provider HEALTH MAINTENANCE Final Result * HIV Screening (10/29/2021) Pathologist [facility] HIV Screening Abstracted [facility] Provider HEALTH MAINTENANCE Final Result * Hepatitis C Screening (10/29/2021) Pathologist [facility] Hepatitis C Screening Abstracted [facility] Provider MD HEALTH MAINTENANCE Final Result from Last 3 Months or Most Recently Relevant to Health Maintenance Insurance [facility] [employer] Care Teams Cut Roll Machine Offbearer Relationship Specialty Start Date End Date Janet Castillo MD [address] [place] [address] , [address] [facility] Physician Associ D/B/A: [facility] BRANT Navarro PCP - General Internal Medicine 11/11/24
== END 2025-03-03 17:03 | disposition home or self-care (01) ==
LOC: HO.HMCH 16:36
PROVIDERS: PCP Internal Medicine; Visit Provider Internal Medicine
DX: Z00.00 Encounter for general adult medical examination without abnormal findings (principal); R74.01 Elevation of levels of liver transaminase levels; G43.909 Migraine, unspecified, not intractable, without status migrainosus

== ENCOUNTER → 2025-03-03 16:36 | Outpatient (BNVA) | payer OTHER, SELFPAY | PROVIDERS: PCP Internal Medicine; Visit Provider Internal Medicine | DX: Z00.00 Encounter for general adult medical examination without abnormal findings (principal); R74.01 Elevation of levels of liver transaminase levels; G43.909 Migraine, unspecified, not intractable, without status migrainosus | CPT/HCPCS: 96127; 99212; 99395 ==

== ENCOUNTER 2025-04-20 08:22 | Outpatient (REF) | payer OTHER, SELFPAY ==
--- NOTE | ~2025-04-20 | US_ITS ---
EXAMINATION: US ABDOMEN LIMITED WITH LIVER ELASTOGRAPHY HISTORY: R74.01 - Elevation of levels of liver transaminase levels TECHNIQUE: Real-time grayscale ultrasound imaging of the right upper quadrant was performed and images were reviewed. COMPARISON: Comparison is made with the prior examination dated . FINDINGS: Liver: The right lobe of the liver measures 12.5 cm in size. The left lobe of the liver measures 12.2 cm in size. The liver demonstrates normal homogeneous echotexture. No focal mass or intrahepatic biliary ductal dilatation is identified. There is normal hepatopedal flow in the portal vein. Ultrasound elastography of the liver was performed with 10 separate measurements of the liver parenchyma with the patient in the supine position. Measurements were obtained approximately 2 cm below Jasmine's capsule and perpendicular to the capsule. Images are of satisfactory quality. The median shear wave velocity is 1.13 m/s. The interquartile range/median (IQR/median) is 0.15. Gallbladder and biliary tree: The gallbladder is unremarkable, without evidence of calculi, wall thickening, or pericholecystic fluid. There is no sonographic Bardales sign. The common bile duct is normal in caliber measuring 2 mm. Right Kidney: The right kidney measures 11.6 cm in length. The right kidney is unremarkable, without evidence of masses, hydronephrosis, or calculi. Pancreas: The pancreatic head, neck, and body are unremarkable. The pancreatic tail is obscured by bowel gas. Abdominal aorta and inferior vena cava: The visualized portions of the abdominal aorta and inferior vena cava are normal in caliber. There is no free fluid in the right upper quadrant. US/US abdomen parker w elastography IMPRESSION: Unremarkable right upper quadrant ultrasound. The median shear wave velocity in the liver is 1.13 m/s, corresponding to a median liver stiffness of 3.8 kPa. The IQR/median value is 0.05. This is indicative of a quality data set. Findings are indicative of a normal elastography value with a low likelihood of severe fibrosis or cirrhosis. REFERENCE: Society of Radiologists in Ultrasound Liver Stiffness Thresholds (2019): LIVER STIFFNESS THRESHOLDS: *Shear wave velocity less than 1.3 m/s (Liver Stiffness equal or less than 5 kPa): High probability of being normal. *Shear wave velocity less than 1.7 m/s (Liver Stiffness less than 9 kPa): In the absence of other known clinical signs, rules out compensated advanced chronic liver disease. *Shear wave velocity between 1.7-2.1 m/s (Liver Stiffness 9-13 kPa): Suggestive of compensated advanced chronic liver disease but need further test for confirmation. *Shear wave velocity between 2.1-2.4 m/s (Liver Stiffness 13-17 kPa): Rules in compensated advanced chronic liver disease. *Shear wave velocity greater than 2.4 m/s (Liver Stiffness over 17 kPa): Suggestive of clinically significant portal hypertension. QUALITY OF DATA SET: *IQR/Median value equal or less than 0.30 implies a quality data set. *IQR/Median value over 0.30 implies a poor quality data set. SIGNIFICANT CHANGE FROM PRIOR EXAM: Significant change if liver stiffness measurement is 10% or greater from prior exam. OTHER CONSIDERATIONS: The stage of liver fibrosis may be overestimated in the setting of acute hepatitis, liver inflammation, elevated liver function tests, hepatic vascular congestion, obstructive cholestasis, non-fasting state, and infiltrative diseases such as amyloidosis and lymphoma. In some patients with NAFLD, the liver stiffness thresholds for compensated advanced chronic liver disease may be lower. In causes other than viral hepatitis and NAFLD, liver stiffness thresholds are not well established. Electronically signed by: Mainor Woodard MD 04/20/2025 09:27 AM EDT
--- OUTSIDE RECORDS SUMMARY | 2025-04-20 08:37 | XMS_ITS | Clinical Summary ---
Author Organization [facility] [address] [place] [address] [place] [phone] Phone Care Team Providers Care Evaporator Name Role Phone Janet Castillo MD Primary Care Provider [phone] Allergies No known active allergies Medications cholecalciferol (VITAMIN D-3) 50 mcg (2,000 unit) capsule Take 1 Tablet by mouth daily. 3 Active vit no.[id number] ( Plus Vitamin-Mineral) 27 mg iron- 1 mg tablet Take 1 tablet by mouth daily. 1 Active amitriptyline (ELAVIL) 10 mg tablet Take by mouth at bedtime. Active norethindrone-eth inyl estradiol (NECON) 0.5-35 mg-mcg per tabletIndications :Encounter for other general counseling or advice on contraception Take 1 tablet by mouth 1 (one) time each day. 84 tablet 3 5 02/10/20 26 Active fluconazole (DIFLUCAN) 150 mg tablet Take 1 tab by mouth now. May repeat in 72 hours if still symptomatic. 2 tablet 5 Active clotrimazole-beta methasone (LOTRISONE) 1-0.05 % cream Apply topically 2 (two) times a day for 7 days. 30 g 5 04/08/20 25 Active Problems Problem Noted Date Diagnosed Date Bacterial vaginosis 08/08/2023 Overview (10/11/2024): Last Assessment & Plan: Treate with Flagyl PO Vaginal discharge 08/08/2023 Overview (10/11/2024): Last Assessment & Plan: Some concern for trichomonas on microscopy and thus antigen sent. yl will treat either. Vulvar irritation 08/08/2023 Overview (10/11/2024): Last Assessment & Plan: Apply Vaseline until healed. Anxiety state 10/29/2021 Overview (10/11/2024): Diagnosed during middle school, no medication no therapist. 12/31/2021- stable Encounters Date Type Department Care Team Description 04/01/2025 1:15 PM EDT Office Visit Obstetrics & Gynecology - [address] [phone] April Judd CNM Acute vaginitis (Primary Dx) 03/30/2025 Telephone Obstetrics and Gynecology - [address] [phone] Elizabeth Arellano CNM Pelvic Pain 02/10/2025 3:45 PM EDT Office Visit Obstetrics and Gynecology - [address] [phone] Elizabeth Arellano CNM Encounter for other general counseling or advice on contraception (Primary Dx); Surveillance for control, oral contraceptives from Last 3 Months Immunizations Name Administration Dates Next Due DTaP (Infanrix) 6wks to less than 7yo ,04/06/2004,2003,06/29,2003 [id number] (Pentacel) 2mo to less than 5yo 04/06/2004,2003,2003,04/14 [...] TONSILLECTOMY ADENOIDECTOMY, BILATERAL MYRINGOTOMY AND TUBES PROCEDURE: [place] TONSILLECTOMY & ADENOIDECTOMY <AGE 12 WISDOM TOOTH EXTRACTION PROCEDURE: HISTORICAL WISDOM TEETH EXTRACTION Medical History Medical History Date Comments Anxiety state DX:Anxiety state 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 For example, children's ministry director or elderly care for an older adult? [...] Lois A1 A5 Name Clin 2021 Term 38w 4d F Vag-S pont Epidur al Y Livin g 8 9 Arilet te Yousuf Carlin and CNM Complications:None Delivery Location:[facility] Last Filed Vital Signs Vital Sign Reading Time Taken Comments Blood Pressure 100/69 04/01/2025 1:29 PM EDT Pulse 96 04/01/2025 1:29 PM EDT Temperature - - Respiratory Rate - - Oxygen Saturation - - Inhaled Oxygen Concentration - - Weight 58.3 kg (128 lb 9.6 oz) 04/01/2025 1:29 P M EDT Height 154.9 cm (5' 1 ) 04/01/2025 1:29 PM EDT Body Mass Index 24.3 04/01/2025 1:29 PM EDT Plan of Treatment Health Maintenance Due Date Last Done Comments Meningococcal B Vaccine (1 of 2 - Standard) 2019 COVID-19 Vaccine ( season) 2024 11/29/2021, 04/18/2021, 03/21/2021 Gonorrhea/Chlamydia Screening 09/23/2025 09/23/2024 [...] 02/02/2004 Hepatitis A Vaccines Completed 05/21/2012, 04/30/20 HPV Vaccines Completed 03/10/2018, 01/30/2017 Meningococcal ACWY [...] Procedure Name Priority Date/Time Associated Diagnosis Comments TRICHOMONAS VAGINALIS ANTIGEN Routine 04/01/2025 1:53 PM EDT Acute vaginitis WET PREP, GENITAL Routine 04/01/2025 1:5 3 PM EDT Acute vaginitis HM GONORRHEA/CHLAMYDIA SCRREENING Routine 09/23/2024 HM HPV Routine 05/05/2024 HEPATITIS C SCREENING Routine 10/29/2021 HIV SCREENING Routine 10/29/2021 from Last 3 Months or Most Recently Relevant to Health Maintenance Results * Trichomonas vaginalis antigen (04/01/2025 1:53 PM EDT) Trichomonas vaginalis Negative Negative 04/01/2025 6:39 PM EDT [facility] ([facility]) [facility] Swab Vaginal structure / Unknown Non-blood Collection / Unknown 04/01/2025 1:53 PM EDT 04/01/2025 4:29 PM EDT April Judd [facility] MICROBIOLOGY - GENERAL OR DERABLES Final Result Performing Organization Address City/[facility]/ZIP Co de Phone Number [facility] [address] [place] [address], [place] [phone] * (ABNORMAL) Wet prep, genital (04/01/2025 1:53 PM EDT) [facility] Clue Cells, Wet Prep Negative Negative 04/01/2025 6:26 PM EDT [facility] Yeast, Wet Prep Positive(A) Negative 04/01/2025 6:26 PM EDT [facility] Trichomonas, Wet Prep Indeterminate Negative 04/01/2025 6:26 PM EDT [facility] Comment:Refer to Trichomonas antigen. Swab Vaginal structure / Unknown Non-blood Collection / Unknown 04/01/2025 1:53 PM EDT 04/01/2025 4:29 PM EDT April Judd [facility] MICROBIOLOGY - GENERAL OR DERABLES Final Result Performing Organization Address [facility] Co de Phone Number [facility] [address] [place] [address], [place] [phone] * Gonorrhea/Chlamydia Screening (09/23/2024) [facility]ologist [facility] Gonorrhea/Chla mydia Screening Abstracted Historical Provider HEALTH MAINTENANCE Final Result * Cervical Cancer Screening: HPV (05/05/2024) Pathologist [facility] Cervical Cancer Screening: HPV No Interpretation , Abstracted Historical Provider HEALTH MAINTENANCE Final Result * HIV Screening (10/29/2021) [facility] HIV Screening Abstracted Historical Provider HEALTH MAINTENANCE Final Result * Hepatitis C Screening (10/29/2021) Hepatitis C Screening Abstracted us Historical Provider HEALTH MAINTENANCE Final Result from Last 3 Months or Most Recently Relevant to Health Maintenance Insurance [facility] [employer] Care Teams Evaporator Relationship Specialty Start Date End Date Janet Castillo MD [address] [facility] , [address] [employer] Physician Associ D/B/A: [facility] [place], [place] PCP - General Internal Medicine 11/11/24
== END 2025-04-20 08:23 | disposition home or self-care (01) ==
LOC: HO.US 08:22
PROVIDERS: PCP Internal Medicine; Visit Provider Internal Medicine
DX: R74.01 Elevation of levels of liver transaminase levels (principal)
CPT/HCPCS: 76705; 76981

== ENCOUNTER → 2025-04-20 08:24 | Outpatient (BNV) | payer OTHER, SELFPAY | PROVIDERS: PCP Internal Medicine; Visit Provider Radiology Diagnostic Radiology | DX: R74.01 Elevation of levels of liver transaminase levels (principal) | CPT/HCPCS: 76705; 76981 ==

== ENCOUNTER 2025-07-27 14:52 | Outpatient (AMB) | payer OTHER, SELFPAY ==
[2025-07-27 15:03] VITALS: BP 104/70; PULSE 80; O2SAT 100; BMI 24.6
--- NOTE | 2025-07-27 15:03 | A.OFFVIS_ITS ---
Vital Signs 07/27/25 15:03 Height 5 ft 1 in Weight 130 lb BMI 24.6 BP 104/70 Blood Pressure Location Rt brachial Position Sitting Pulse 80 Pulse Source Pulse Oximeter Pulse Oximetry (%) 100 Oxygen Delivery Method Room Air Intake Visit Reasons: IN-Migrrudy Remote Pilot Operator Required: No Accompanied by: Self / Same As Patient Allergies No Known Allergies (No Known Allergies*) Allergy (Verified 07/27/25 15:12) HPI Comments Details: History of Present Illness The patient is a 20-year-old female presenting with headaches. Patient reports she has been experiencing migraine-like headaches since middle school, and gradually increased in frequency and intensity. She denies any precipitating factors that may have initially caused headaches. She states likely the headache is likely genetic, as her mother and maternal grandmother have migraine headaches. She has not previously seen Neurology before; however, she has taken amitriptyline for migraine prevention since last fall, which initially was helpful but is no longer helpful. She previously tried magnesium, is unsure of the effect, and stopped it as insurance was no longer covering it. She has tried sumatriptan 25 mg; however, she has bothersome side effects, so she is more likely to take an Excedrin 1st. Medical history and ROS are notable for: * Constipation is described as frequent and chronic. * History of cardiac arrhythmia: Reports irregular heartbeat starting at age 14. Reports she had a cardiology evaluation at the time, and a Holter monitor showed ?atrial fibrillation?; however patient declined the medication treatment offered her. Now has occasional episodes of brief palpitations with rest or activity, which are not associated with dizziness, lightheadedness, or shortness of breath. * Difficulty sleeping: Endorses difficulty initiating but more difficulty with sleep maintenance, frequent nocturnal awakenings, restless sleep, unrefreshing sleep, and fatigue. Underwent a sleep study at age 2 before tonsillectomy. * Anemia, not actively managed with medication. * Vision changes: Difficulty reading at a distance. Last eye exam was at age 14. * Patient is currently on OCP, was previously on Depo-Provera. Pertinent denials include: Denies a history of head injury or concussion Denies RLS, leg cramps, bruxism, snoring, and nocturia. Denies neck pain, back pain, leg cramps Denies dizziness, syncope, lightheadedness Denies a history of kidney stones Denies asthma, HTN, diabetes, thyroid dysfunction Results * Labs: Prior history of anemia with low iron and elevated ALT (40 on 11/26/2024) noted from lab results. * Tests & Diagnostics: Holter monitor evaluation suggested possible ?atrial fibrillation? during adolescence. Headache questionnaire: Age/time of onset: Middle school Preceding causes: pt states genetic- her mother and maternal grandmother have migraine Previous work-up: none Types of headache disorders: 1- varying severity. Typical headache characteristics: Prodrome symptoms: eyes hurting Aura: may occasionally see something out of the corner of her eye, some blurry vision Pain intensity: moderate-severe Location, quality, characteristics: Bifrontal, bitemporal, bilateral retroorbital- pressure pain. Occasionally, random stabbing pains in the temples. Associated symptoms: photophobia, allodynia, sometimes nausea, fatigue, cognitive difficulties, activity intolerance, Postdrome: denies Triggers: computer use Time of day: around lunchtime or early afternoon Duration and Frequency: 4 attacks per week. Each attachment lasts 4 hours up to 3 days. Headache impact on patient's quality of life: May miss social/personal activities, but tries to push through work. Current acute medication use/interventions: Excedrin or Sumatriptan 25mg if more severe- effect is slow and may need to repeat a dose, and causes sensation of warmth, dizziness, and sleepiness. Current preventative medication use: Amitriptyline 10mg since Oct 2025- initially helpful, but then stopped working. Tried Mag, but insurance stopped covering it. Current non-pharmacological interventions: rest, blue light filter glasses Headache Lifestyle Factors Hydration * Inadequate fluid intake, approximately two bottles of water daily. Exercise * Little exercise, however, she is active with her young daughter. Nutrition * The patient reports inadequate fluid consumption, approximately two bottles of water daily. Otherwise, the patient states she generally eats a well-balanced diet. 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 * Family status: Has a 3-year-old child. Sleep * Usual bedtime is at 11:00 PM. * Difficulty falling asleep at times; primarily struggles with staying asleep. * Wakes up at approximately 7:00 AM. * Experiences frequent nocturnal awakenings. * Caffeine intake is minimal, consumed only in the morning if at all. Substance Use History * Denies use of alcohol, cigarettes, vaping, marijuana, gummies, THC, or CBD. 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 * Sedentary work primarily at a desk involving computer use. [facility] Surgical History History of wisdom tooth extraction S/P tonsillectomy Family History Mother Hypertension Pre-diabetes Anemia Father Hypertension Social History Household Members: Family Housing: House Alcohol intake: never Patient Tobacco Use Status: Never used Tobacco e-Cigarette/Vaping Use: Never Used Second Hand Smoke Exposure: No service: No Current occupational status: employed Current occupational exposures/hazards: No Cognitive needs: No Hearing needs: No Vision needs: No Physical Exam Vital Signs: Last Vital Signs Pulse 80 07/27/25 15:03 BP 104/70 07/27/25 15:03 Pulse Ox 100 07/27/25 15:03 Oxygen Delivery Method Room Air 07/27/25 15:03 BMI result Body Mass Index 24.6 Const Orientation/consciousness: patient oriented x3 Resp Effort & Inspection: normal respiratory effort and able to speak in complete sentences Neuro Other: Lapidus stage IV No palpable scalp tenderness. Full cervical range of motion Very mild bilateral upper trap tightness General: patient oriented x3 Cranial nerves: Yes CN's II-XII intact bilaterally Cognition (Neuro): normal cognition Gait exam (Neuro): Normal gait present Motor exam (neuro): 5/5 motor strength present throughout Deep tendon reflexes (DTR's): Right triceps reflex intensity grade: 2+, Left triceps reflex intensity grade: 2+, Rt Biceps (C5, C6): 2+, Left biceps reflex intensity grade: 2+, Right brachioradialis reflex intensity grade: 2+, Left brachioradialis reflex intensity grade: 2+, Right patellar reflex intensity grade: 2+ and Left patellar reflex intensity grade: 2+ Coordination: [id number] test normal, tandem gait normal and Romberg test negative Pupils: Normal pupillary reactivity/response: bilateral Psych Appearance: grossly normal Mental Status: mental status grossly normal Speech and movement: Normal speech and movement present Affect: normal affect Attitude: cooperative Thought process: Normal thought process present Assessment & Plan Assessment & Plan (1) Worsening headaches: Code(s): R51.9 - Headache, unspecified Category: Medical (2) Visual aura: Comment: Likely migraine aura Code(s): H53.9 - Unspecified visual disturbance Category: Medical (3) Blurry vision, bilateral: Code(s): H53.8 - Other visual disturbances Category: Medical (4) Chronic migraine without aura without status migrainosus, not intractable: Comment: Occasional migraine-like headaches with probable peripheral visual aura Code(s): G43.709 - Chronic migraine without aura, not intractable, without status migrainosus Category: Medical (5) Fatigue: Code(s): R53.83 - Other fatigue Category: Medical Qualifiers: Fatigue type: unspecified Qualified Code(s): R53.83 - Other fatigue Plan Discussion Notes I discussed with the patient that her headaches are likely migraines with and without aura, primarily triggered by genetic predisposition and work-related activities. I emphasized a three-pronged treatment approach including lifestyle modifications, acute symptom management, and possible preventive medication adjustments. Naratriptan was suggested as an alternative for acute treatment due to its typically better side effect profile. We discussed the benefits of using acute medication at the earliest sign of a migraine to prevent escalation. I addressed preventive treatment with an increase in amitriptyline dosage and the introduction of vitamin B2 and magnesium due to potential help with migraines and constipation. Risks of amitriptyline, potential aggravation of restless legs, and alternatives were discussed. A baseline MRI, eye exam, EKG, and further assessment of anemia were advised to rule out other contributing factors. Follow-up care in three months was recommended to reassess progress and make further adjustments. Patient was informed and verbally consented to the use of an ambient scribe for clinic note documentation during this visit. You are advised to undergo: Brain MRI with and without contrast Comprehensive eye exam Fasting lab work Baseline EKG Future considerations: Sleep study For overall headache management: * Optimize good self-care, including but not limited to maintaining a healthy diet, adequate fluid intake, adequate sleep, and engaging in regular physical activity. * Track headaches and both positive and negative effects of your headache treatment trials, especially after any treatment regimen changes. * [facility] [employer] is one of many headache tracking apps. * A simple paper calendar is also a good option. * Non-pharmacological interventions which may help to alleviate your headache attack frequency, severity, and associated symptoms: For light sensitivity: You may benefit from trying blue light or FL-41 blue light filtering glasses, green glasses, green light therapy. For acute (as needed) headache treatment: It is important to take acute medications at the first sign of headache. How ever, please be aware that frequently using most acute medications may increase the frequency of your headache attacks, as well as make your other treatments less effective.. * Discontinue sumatriptan 25 mg- not tolerated * Trial Naratriptan 2.5mg tab, 1/2 - 1 tab (1.25-2.5mg) at onset of headache, may repeat in 4 hours. Max of 2 tabs (5mg) per 24 hours. * If needed, may take naratriptan with [id number] (OTC) Tylenol 650 - 1000 mg every 4 -6 hours, or Ibuprofen (liquigel) 600mg every 6 hours, or Naproxen (liquigel) 440mg every 12 hrs as needed. * Potential adverse effects of naratriptan, include but are not limited to nausea, fatigue, chest tightness/tingling (usually passes within a few minutes), medication overuse headaches. Previous acute migraine medication trials: Sumatriptan 25 mg-not tolerated, caused bothersome warmth strange sensation. Acute migraine medication contraindications: None at this time For headache prevention medication: Preventative medications should be taken routinely as prescribed for best effect, it may take several weeks for full effect to take effect. * Start Riboflavin 400mg daily in the morning * This is generally well tolerated, however some people may experience mild abdominal discomfort from use. * This will cause your urine to become bright yellow or orange, which is expected and not of any concern. * Resume Magnesium 400mg daily at bedtime * Magnesium comes in many subtypes, such as magnesium oxide, glycinate, citrate, and even try magnesium combinations. Additionally magnesium comes in many forms, including tablets, capsules, powders or even liquid formulations. There is not a specific magnesium subtype or form known to be significantly more effective than another. Rather, the magnesium subtype inform that you best tolerate, is the best version for you. * Possible side effects of magnesium include, but are not limited to, GI upset, abdominal cramping, loose stools, and diarrhea * Increase Amitriptyline from 10 mg daily at 9 p.m. to 12.5 mg daily at 9 p.m. x1 week, then increase to 25 mg daily at 9 p.m. * Potential side effects include but are not limited to fatigue, cardiac arrhythmias, mood changes. Previous migraine prevention medication trials: Amitriptyline 10 mg-ineffective w/o s/e. Migraine prevention medication contraindications: None at this time We will follow-up upon review of above and with a follow-up clinic visit in 3 months or sooner as needed. Orders: Orders Complete Blood Count Auto Diff Today D64.9 - Anemia, unspecified, G43.909 - Migraine, unspecified, not intractable, without status migrainosus, R53.83 - Other fatigue, R74.01 - Elevation of levels of liver transaminase levels Ferritin Today D64.9 - Anemia, unspecified, G43.909 - Migraine, unspecified, not intractable, without status migrainosus, R53.83 - Other fatigue, R74.01 - Elevation of levels of liver transaminase levels Homocysteine Today D64.9 - Anemia, unspecified, G43.909 - Migraine, unspecified, not intractable, without status migrainosus, R53.83 - Other fatigue, R74.01 - Elevation of levels of liver transaminase levels C Reactive Protein Today D64.9 - Anemia, unspecified, G43.909 - Migraine, unspecified, not intractable, without status migrainosus, R53.83 - Other fatigue, R74.01 - Elevation of levels of liver transaminase levels ECG 12 lead EKG Today R00.2 - Palpitations IRON PROFILE Today D64.9 - Anemia, unspecified, G43.909 - Migraine, unspecified, not intractable, without status migrainosus, R53.83 - Other fatigue, R74.01 - Elevation of levels of liver transaminase levels Comprehensive Brave. Panel Fast Today D64.9 - Anemia, unspecified, G43.909 - Migraine, unspecified, not intractable, without status migrainosus, R53.83 - Other fatigue, R74.01 - Elevation of levels of liver transaminase levels Vitamin B12 and Folate Today D64.9 - Anemia, unspecified, G43.909 - Migraine, unspecified, not intractable, without status migrainosus, R53.83 - Other fatigue, R74.01 - Elevation of levels of liver transaminase levels Magnesium Today D64.9 - Anemia, unspecified, G43.909 - Migraine, unspecified, not intractable, without status migrainosus, R53.83 - Other fatigue, R74.01 - Elevation of levels of liver transaminase levels Vitamin D 25-OH (D2 and D3) Today D64.9 - Anemia, unspecified, E55.9 - Vitamin D deficiency, unspecified, G43.909 - Migraine, unspecified, not intractable, without status migrainosus, R53.83 - Other fatigue, R74.01 - Elevation of levels of liver transaminase levels Erythrocyte Sedimentation Rate Today D64.9 - Anemia, unspecified, G43.909 - Migraine, unspecified, not intractable, without status migrainosus, R53.83 - Other fatigue, R74.01 - Elevation of levels of liver transaminase levels MR head/brain wo/w con Today H53.9 - Unspecified visual disturbance, R51.9 - Headache, unspecified Referrals Ophthalmology Referral G43.109 - Migraine with aura, not intractable, without status migrainosus, G43.709 - Chronic migraine without aura, not intractable, without status migrainosus, H53.8 - Other visual disturbances Medications: New riboflavin (vitamin B2) 400 mg PO DAILY 90 tabs 3RF 90 days naratriptan take 1/2 - 1 tab at onset of headache; if no relief may repeat 1 tab after at least 4 hrs; max = 2 tabs/24 hrs orally PRN; 12 tabs 6RF migraine headache 30 days amitriptyline At 9 p.m. 25 mg PO BEDTIME 90 tabs 1RF 90 days Coding Level of Care Code New Pt Level 4 (76898) Diagnoses Worsening headaches R51.9 Visual aura H53.9 Blurry vision, bilateral H53.8 Chronic migraine without aura without status migrainosus, not intractable G43.709 Fatigue, unspecified type R53.83 Fatigue type: unspecified
--- OUTSIDE RECORDS SUMMARY | 2025-07-27 17:07 | XMS_ITS | Clinical Summary ---
Author Organization [facility] [address] [place] [address] [place] [id number] Phone Care Team Providers Care Investor Relations Specialist Name Role Phone Janet Castillo MD Primary Care Provider [phone] Allergies No known active allergies Medications cholecalciferol (VITAMIN D-3) 50 mcg (2,000 unit) capsule Take 1 Tablet by mouth daily. 3 Active vit [id number] ( Plus Vitamin-Mineral) 27 mg iron- 1 [...] May repeat in 72 hours if still symptomatic . 2 tablet 5 Active Active Problems Problem Noted Date Diagnosed Date [...] school, no medication no therapist. 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 For example, childcare worker or elderly care for an older adult? [...] g Live Births 1 1 1 0 1 1 Date Outcome GA Total Labor Labor/2nd/3rd Weight Sex Type Anes PTL Lois A1 A5 Name Clin 2021 Term 38w 4d F Vag-S pont Epidur al Y Livin g 8 9 Arilet te Yousuf Carlin and CNM Complications:None Delivery Location:[facility] Last Filed Vital Signs Vital [...] of 2 - Standard) 2019 COVID-19 Vaccine (4 - season) 2024 11/29/2021, 04/18/2021, 03/21/2021 Influenza Vaccine (#1) 2025 , 09/25/2021, 12/28/2012, Additional history exists Gonorrhea/Chlamydia Screening 09/23/2025 09/23/2024 Social Influencers of Health Screening 11/11/2025 11/11/2024 Cervical Cancer Screening: Pap Smear 05/05/2027 05/05/2024, 05/05/2024, 05/05/2024 DTaP,Tdap,and Td Vaccines (8 - Td or Tdap) 02/26/2032 02/25/2022, 05/09/2015, 02/16/2007, Additional history exists HIB Vaccines Completed 04/06/2004, 09/24, 2003, Additional history exists Pneumococcal Vaccine: Pediatrics (0 to 5 Years) and At-Risk Patients (6 to 49 Years) Completed 07/12/2004, 2003, 2003 IPV Vaccines Completed 02/16/2007, 03/24, 02/02/2004, Additional history exists MMR Vaccines Completed 02/16/2007, 07/04/2004 Varicella Vaccines Completed 02/16/2007, 02/02/2004 Hepatitis A Vaccines Completed 05/21/2012, 04/30/20 11 HPV Vaccines Completed 03/10/2018, 01/30/2017 Meningococcal ACWY Vaccine Completed 03/25/2019, HIV Screening Completed 10/29/2021 Hepatitis C Screening Completed 10/29/2021 Hepatitis B Vaccines Completed 12/14/2021, 11/02/2021, 07/02/2004, Additional history exists Depression Screening Completed 02/09/2025 RSV Immunization Patients Under 20 months Aged Out No longer eligible based on patient's age to complete this topic Procedures Procedure Name Priority Date/Time Associated Diagnosis Comments HM GONORRHEA/CHLAMYDIA SCRREENING Routine 09/23/2024 HPV Routine 05/05/2024 HEPATITIS C SCREENING Routine 10/29/2021 HIV SCREENING Routine 10/29/2021 from Last 3 Months or Most Recently Relevant to Health Maintenance Results * Gonorrhea/Chlamydia Screening (09/23/2024) Gonorrhea/Chla mydia Screening Abstracted [facility] Provider MD HEALTH MAINTENANCE Final Result * Cervical Cancer Screening: HPV (05/05/2024) Pathologist [facility] Cervical Cancer Screening: HPV No Interpretation , Abstracted [facility] Provider HEALTH MAINTENANCE Final Result * HIV Screening (10/29/2021) Pathologist [facility] HIV Screening Abstracted [facility] Provider HEALTH MAINTENANCE Final Result * Hepatitis C Screening (10/29/2021) Hepatitis C Screening Abstracted [facility] Provider HEALTH MAINTENANCE Final Result from Last 3 Months or Most Recently Relevant to Health Maintenance Insurance [facility] [place] [address] Care Teams Investor Relations Specialist Relationship Specialty Start Date End Date Janet Castillo MD [address] [place] [address] , [address] [facility]A: [facility] BRANT Navarro PCP - General Internal Medicine 11/11/24
--- OUTSIDE RECORDS SUMMARY | 2025-07-27 17:07 | XMS_ITS | Clinical Summary ---
Author Organization [facility] Address [address] [place] [address] Phone Care Team Providers Care Assurance Associate Name Role Phone Mustapha Sena MD Unavailable [phone] Carole Polanco Primary Care Provider [phone] Allergies No known active allergies Medications drospirenone-eth inyl estradiol (HAN) 3-0.02 mg per tablet Take 1 tablet by mouth daily. Active Active Problems Problem Noted Date Diagnosed Date Constipation 12/04/2019 Generalized abdominal pain 07/08/2017 Social History Tobacco Use Types Packs/Day Years Used Date Smoking Tobacco: Never Assessed Education Answer Date Recorded Are you interested in more education? Not on h[place] e 03/21/2023 Are you concerned about learning? Not on file 03/21/2023 No 03/21/2023 No 03/21/2023 Digital Access Answer Date Recorded No 04/21/2023 No 04/21/2023 No 04/21/2023 Reliable internet access at home? Not on file 04/21/2023 Device with a working camera? Not on file Comments Unknown Sex and Gender Information Value Date Recorded Sex Assigned at Not on file Legal Sex Female 4:46 PM EDT Gender Identity Not on file Sexual Orientation Not on file Last Filed Vital Signs Vital Sign Reading Time Taken Comments Blood Pressure 110/64 12/02/2019 10:48 AM EST Pulse 80 12/02/2019 10:48 AM EST Temperature - - Respiratory Rate 16 12/02/2019 10:48 AM EST Oxygen Saturation - - Inhaled Oxygen Concentration - - Weight 49.7 kg (109 lb 9.6 oz) 12/02/2019 10:48 AM EST Height 157 cm (5' 1.81 ) 12/02/2019 10:48 AM EST Body Mass Index 20.17 12/02/2019 10:48 AM EST Plan of Treatment Health Maintenance Due Date Last Done Comments DEPRESSION SCREENING 2015 SMOKING Hx and SMOKELESS TOB ACCO SCREENING 2016 CHLAMYDIA SCREENING 2019 MENINGOCOCCAL VACCINES (B) ( 1 of 2 - Standard) 2019 HEPATITIS C SCREENING 2021 HIV ONE-TIME SCREENING (18-6 5 YEARS) 2021 PAP SMEAR 2024 Adult Td,Tdap Booster 05/09/2025 05/09/2015 INFLUENZA VACCINE (#1) 2025 12/28/2012, 2003 COVID-19 VACCINE ( - 2023-2 5 season) 2025 HIB VACCINES Completed 04/06/2004, 09/24, 2003, Additional history exists PNEUMOCOCCAL VACCINES (0-49 years) Completed 07/12/2004, 2003, 2003 HEPATITIS A VACCINES Completed 05/21/2012, 04/30/20 11 HPV VACCINES Completed 03/10/2018, 01/30/2017 MENINGOCOCCAL VACCINES (ACWY) Completed 03/25/2019, 01/30/2017 Medical Devices Not on file Insurance [employer] P[employer] CIGNA [employer] PPO CIGNA [employer] PPO CIGNA [employer] PPO CIGNA [employer] PPO CIG[employer] PPO [employer] PPO CIG[employer] PPO [employer] PPO Care Teams Assurance Associate Relationship Specialty Start Date End Date Carole Polanco PA [address] [place] [id number] PCP - General Unknown Provider Specialty 11/02/19 Mustapha Sena MD [address] [place] [id number] [email or web address] 11/02/19 Additional Source Comments The information contained in this document represents components of the legal health record. It is not the complete legal health record.[facility]
== END 2025-07-27 16:19 | disposition home or self-care (01) ==
LOC: HO.HSMS 14:53
PROVIDERS: PCP Internal Medicine; Visit Provider Nurse Practitioner Family
DX: R51.9 Headache, unspecified (principal); H53.9 Unspecified visual disturbance; H53.8 Other visual disturbances; G43.709 Chronic migraine without aura, not intractable, without status migrainosus; R53.83 Other fatigue
CPT/HCPCS: 99204

== ENCOUNTER → 2025-07-27 14:52 | Outpatient (BNVA) | payer OTHER, SELFPAY | PROVIDERS: PCP Internal Medicine; Visit Provider Nurse Practitioner Family | DX: R51.9 Headache, unspecified (principal); H53.9 Unspecified visual disturbance; H53.8 Other visual disturbances; R53.83 Other fatigue | CPT/HCPCS: 99202 ==

== ENCOUNTER → 2025-08-10 15:40 | Outpatient (BNV) | payer OTHER, SELFPAY | PROVIDERS: PCP Internal Medicine; Visit Provider Radiology Body Imaging | DX: G43.109 Migraine with aura, not intractable, without status migrainosus (principal) | CPT/HCPCS: 70553 ==

== ENCOUNTER 2025-08-10 15:47 | Outpatient (REF) | payer OTHER, SELFPAY ==
--- NOTE | ~2025-08-10 | MR_ITS ---
EXAMINATION: MR BRAIN WITHOUT THEN WITH IV CONTRAST CLINICAL INFORMATION: R51.9 - Headache, unspecified COMPARISON: None available. TECHNIQUE: Multiplanar, multisequence MRI of the brain was obtained before and after the intravenous administration of 6 cc gadolinium. FINDINGS: Brain parenchyma: No shift of midline structures. No evidence of acute infarct, parenchymal hemorrhage or mass lesion. Mild downward displacement of the cerebellar tonsils of approximately 0.6 cm below the level of the foramen magnum. No abnormal parenchymal enhancement. Ventricles/extra-axial spaces: No hydrocephalus. No extra-axial fluid collection. Extracranial structures: Arterial flow voids in the skull base are preserved. Bilateral orbits are unremarkable. Paranasal sinuses and mastoid air cells are clear. MR/MR head/brain wo/w con IMPRESSION: 1. Unremarkable brain parenchyma, without abnormal signal or enhancement. 2. Borderline low-lying cerebellar tonsils could represent Chiari 1 malformation. Electronically signed by: Devin Turpin MD 08/10/2025 05:41 PM EDT
--- OUTSIDE RECORDS SUMMARY | 2025-08-10 19:05 | XMS_ITS | Clinical Summary ---
Author Organization [facility] Address [address] [place] [address] Phone Care Team Providers Care Horse Exerciser Name Role Phone Mustapha Sena MD Unavailable [phone] Carole Polanco Primary Care Provider [phone] Allergies No known active allergies Medications drospirenone-eth [...] 01/30/2017 Medical Devices Not on file Insurance [employer] PPO CIGNA CARELINK PPO CIGNA CARELINK PPO CIGNA CARELINK PPO CIGNA CARELINK PPO CIGNA CARELINK PPO CIGNA [employer]EL[employer] PPO CIGNA [employer] PPO CIGNA [employer]EL[employer] PPO Care Teams Horse Exerciser Relationship Specialty Start Date End Date Carole Polanco PA [address] [place] [phone] PCP - General Unknown Provider Specialty 11/02/19 Mustapha Sena MD [address] [place] [phone] [email or web address] Pediatric Cardiology 11/02/19 Additional Source Comments The information contained in this document represents components of the legal health record. It is not the complete legal health record.[facility]
--- OUTSIDE RECORDS SUMMARY | 2025-08-10 19:05 | XMS_ITS | Clinical Summary ---
Author Organization [facility] [address] [place] [address] [place] [phone] Phone Care Team Providers Care Coppersmith Helper Name Role Phone Janet Castillo MD Primary Care Provider [phone] Allergies No known active allergies Medications cholecalciferol (VITAMIN D-3) 50 mcg (2,000 unit) capsule Take 1 Tablet by mouth daily. 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 For example, child support investigator or elderly care for an older adult? [...] te Yousuf Carlin and CNM Complications:None Delivery [facility] Last Filed Vital Signs Vital Sign Reading [...] Standard) 2019 COVID-19 Vaccine (4 - season) 2025 11/29/2021, 04/18/2021, 03/21/2021 Influenza Vaccine (#1) 2025 [...] Gonorrhea/Chlamydia Screening (09/23/2024) Gonorrhea/Chla mydia Screening Abstracted [facility] Provider MD HEALTH MAINTENANCE Final Result * Cervical Cancer Screening: HPV (05/05/2024) Pathologist [facility] Cervical Cancer Screening: HPV No Interpretation , Abstracted [facility] Provider HEALTH MAINTENANCE Final Result * HIV Screening (10/29/2021) Pathologist [facility] HIV Screening Abstracted [facility] Provider HEALTH MAINTENANCE Final Result * Hepatitis C Screening (10/29/2021) Hepatitis C Screening Abstracted [facility] Provider HEALTH MAINTENANCE Final Result from Last 3 Months or Most Recently Relevant to Health Maintenance Insurance [facility] [employer] Care Teams Coppersmith Helper Relationship Specialty Start Date End Date Janet Castillo MD [address] [place] [address] , [address] [facility] D/B/A: [facility] BRANT Navarro PCP - General Internal Medicine 11/11/24
== END 2025-08-10 15:48 | disposition home or self-care (01) ==
LOC: HO.MRI 15:47
PROVIDERS: PCP Internal Medicine; Visit Provider Nurse Practitioner Family
DX: R51.9 Headache, unspecified (principal); H53.9 Unspecified visual disturbance
CPT/HCPCS: 70553; A9585

== ENCOUNTER → 2025-08-24 08:07 | Outpatient (REF) | payer OTHER, SELFPAY ==
--- NOTE | 2025-08-24 08:18 | ECG_ITS ---
Test Reason : rhythm check Blood Pressure : */* mmHG Vent. Rate : 96 BPM Atrial Rate : 96 BPM P-R Int : 150 ms QRS Dur : 80 ms QT Int : 354 ms P-R-T Axes : 77 69 49 degrees QTcB Int : 447 ms Normal sinus rhythm Normal ECG When compared with ECG of 12-Jul-2019 12:20, No significant change was found Referred By: Stephanie Luther Electronically Signed By: CECILY JEFFREY
--- OUTSIDE RECORDS SUMMARY | 2025-08-24 08:20 | XMS_ITS | Clinical Summary ---
Author Organization [facility] Address [address] [place] [address] Phone Care Team Providers Care Veneer Taper Name Role Phone Mustapha Sena MD Unavailable Carole Polanco Primary Care Provider [phone] Allergies No known active allergies Medications drospirenone-eth [...] 01/30/2017 Medical Devices Not on file Insurance [employer] PPO CIGNA CARELINK PPO CIGNA CARELINK PPO CIGNA [employer] PPO CIGNA CARELINK PPO CIGNA CARELINK PPO CIGNA [employer] PPO CIGNA [employer] PPO [employer]IG[employer] PPO Care Teams Veneer Taper Relationship Specialty Start Date End Date Carole Polanco PA [address] [place] [id number] PCP - General Unknown Provider Specialty 11/02/19 Mustapha Sena MD [address] [place] [phone] [email or web address] Pediatric Cardiology 11/02/19 Additional Source Comments The information contained in this document represents components of the legal health record. It is not the complete legal health record.[facility]
--- OUTSIDE RECORDS SUMMARY | 2025-08-24 08:21 | XMS_ITS | Clinical Summary ---
Author Organization [facility] [address] [place] [address] [place] [phone] Phone Care Team Providers Care Sales Development Director Name Role Phone Janet Castillo MD Primary Care Provider [phone] Allergies No known active allergies Medications cholecalciferol (VITAMIN D-3) 50 mcg (2,000 unit) capsule Take 1 Tablet by mouth daily. 3 Active vit no.991-[id number]-[id number] ( Plus Vitamin-Mineral) 27 mg iron- 1 [...] no medication no therapist. 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 For example, child care leader or elderly care for an older adult? [...] Date Recorded What is your living situation? Unrecognized valu e 11/11/2024 Comments No Sex and Gender Information Value [...] te Yousuf Carlin and CNM Complications:None Delivery Location:[facility] Last Filed Vital Signs Vital Sign [...] 02/26/2032 02/25/2022, 05/09/2015, 02/16/2007, Additional history exists RSV Immunization Adult Patients (1 - 1-dose 75+ series) 2078 HIB Vaccines Completed 04/06/2004, 09/24, 2003, Additional [...] Gonorrhea/Chlamydia Screening (09/23/2024) Gonorrhea/Chla mydia Screening Abstracted [facility] Provider HEALTH MAINTENANCE Final Result * Cervical Cancer Screening: HPV (05/05/2024) Cervical Cancer Screening: HPV No Interpretation , Abstracted [facility] Provider HEALTH MAINTENANCE Final Result * HIV Screening (10/29/2021) Pathologist [facility] HIV Screening Abstracted [facility] Provider HEALTH MAINTENANCE Final Result * Hepatitis C Screening (10/29/2021) Pathologist Counts include [facility] beds at [facility] Hepatitis C Screening Abstracted [facility] Provider HEALTH MAINTENANCE Final Result from Last 3 Months or Most Recently Relevant to Health Maintenance Insurance [facility] [employer] Care Teams Sales Development Director Relationship Specialty Start Date End Date Janet Castillo MD [address] , [address] [facility] Physician Associ D/B/A: [facility] BRANT Navarro PCP - General Internal Medicine 11/11/24
[2025-08-24 08:38] LABS: MANUAL DIFF FLAG NO
[2025-08-24 08:57] LABS: Hematocrit 41.1 % (37.0-47.0); Hemoglobin 13.9 g/dl (12.0-16.0); Imm Gran Abs Auto 0.04 X10*3/uL (0.00-0.03); Imm Gran Pct Auto 0.5 % (0.0-0.4); Lymphocytes Absolute Auto 2.2 X10*3/uL (1.2-4.9); Mean Corpuscular HGB Conc 33.8 g/dl (31.0-35.0); Mean Corpuscular Hemoglobin 29.1 pg (27.0-33.0); Mean Corpuscular Volume 86.2 fL (80.0-98.0); NRBC Abs Auto 0.000 X10*3/uL (0.0-0.012); NRBC Pct Auto 0.0 /100WBC (0.0-0.2); Platelet Count 278 X10*3/uL (160-400); Red Blood Count 4.77 X10*6/uL (4.20-5.50); White Blood Count 8.5 X10*3/uL (4.8-10.8)
[2025-08-24 09:54] LABS: Alanine Aminotransferase 27 U/L (0-31); Albumin Level 4.3 g/dL (3.5-5.0); Alkaline Phosphatase 72 U/L (39-117); Anion Gap 10 (12-20); Aspartate Amino Transferase 21 U/L (5-31); Blood Urea Nitrogen 9 mg/dL (9-16); Calcium 9.4 mg/dL (8.4-10.2); Carbon Dioxide 27 mmol/L (22-29); Chloride 108 mmol/L (96-108); Estimated Glomerular Filt Rate > 60; Iron 52 mcg/dL (30-160); Magnesium 2.1 mg/dL (1.6-2.6); Percent Iron Saturation 14 % (15-50); Potassium 4.2 mmol/L (3.3-5.1); Sodium 141 mmol/L (135-145); Total Iron Binding Capacity 370 mcg/dL (228-428); Total Protein 7.2 g/dL (6.5-8.0); Unsaturated Iron Binding 318 ug/dL
[2025-08-24 10:13] LABS: Ferritin 71 ng/mL (10-122)
[2025-08-24 10:35] LABS: Folate 15.0 ng/mL (> or = 4.0); Vitamin B12 489 pg/mL (200-900)
[2025-08-29 17:32] LABS: Vitamin D 25-OH, D2 <4 ng/mL; Vitamin D 25-OH, D3 43 ng/mL; Vitamin D 25-OH, Total 43 ng/mL (30-100)
== END ==
LOC: HO.CARD 08:07
PROVIDERS: PCP Internal Medicine; Visit Provider Nurse Practitioner Family
DX: R00.2 Palpitations (principal); G43.909 Migraine, unspecified, not intractable, without status migrainosus; D64.9 Anemia, unspecified; R53.83 Other fatigue; R74.01 Elevation of levels of liver transaminase levels; E55.9 Vitamin D deficiency, unspecified
CPT/HCPCS: 36415; 80053; 82306; 82607; 82728; 82746; 83090; 83540; 83735; 85025; 85652; 86140; 93005

== ENCOUNTER → 2025-08-24 08:18 | Outpatient (BNV) | payer OTHER, SELFPAY | PROVIDERS: PCP Internal Medicine; Visit Provider Internal Medicine | DX: R00.2 Palpitations (principal) | CPT/HCPCS: 93010 ==

== ENCOUNTER 2025-11-04 13:35 | Outpatient (AMB) | payer OTHER, SELFPAY ==
--- NOTE | 2025-11-04 13:32 | A.OFFVIS_ITS ---
Intake Visit Reasons: 3 months F/U Stenocaptioner Required: No Accompanied by: Self / Same As Patient Allergies No Known Allergies (No Known Allergies*) Allergy (Verified 07/27/25 15:12) HPI Comments Details: 20-year-old female presents for follow-up of headache disorder. She reports she is doing overall a little better. She is now having 2, maybe 3 headache days per week. The combination of naratriptan and NSAIDs is more effective. She did increase amitriptyline to 25 mg, which she is tolerating well. Denies morning sleepiness. After last visit, she also started on ferrous sulfate with vitamin-C to address mildly low ferritin in setting of sleep difficulties * Follow-up labs will be due in mid November She underwent eye exam, was given new glasses, which has helped to reduce eye strain. Interval work-up: 08/10/2025, Brain MRI Borderline low-lying cerebellar tonsils could represent Chiari 1 malformation. 08/24/2025, EKG: WNL 08/24/2025 Labs, serum CRP 0.91 elevated. ESR WNL. CBC WNL CMP WNL Vitamin B12 489 Full 815 Vitamin D total 43 WNL Homocysteine 5.7 Ferritin 71 Iron 52 TIBC 370 % Sat 14% low July 27, 2025, initial HPI: History of Present Illness The patient is a 20-year-old female presenting with headaches. Patient reports she has been experiencing migraine-like headaches since middle school, and gradually increased in frequency and intensity. She denies any precipitating factors that may have initially caused headaches. She states likely the headache is likely genetic, as her mother and maternal grandmother have migraine headaches. She has not previously seen Neurology before; however, she has taken amitriptyline for migraine prevention since last fall, which initially was helpful but is no longer helpful. She previously tried magnesium, is unsure of the effect, and stopped it as insurance was no longer covering it. She has tried sumatriptan 25 mg; however, she has bothersome side effects, so she is more likely to take an Excedrin 1st. Medical history and ROS are notable for: * Constipation is described as frequent and chronic. * History of cardiac arrhythmia: Reports irregular heartbeat starting at age 14. Reports she had a cardiology evaluation at the time, and a Holter monitor showed ?atrial fibrillation?; however patient declined the medication t reatment offered her. Now has occasional episodes of brief palpitations with rest or activity, which are not associated with dizziness, lightheadedness, or shortness of breath. * Difficulty sleeping: Endorses difficulty initiating but more difficulty with sleep maintenance, frequent nocturnal awakenings, restless sleep, unrefreshing sleep, and fatigue. Underwent a sleep study at age 2 before tonsillectomy. * Anemia, not actively managed with medication. * Vision changes: Difficulty reading at a distance. Last eye exam was at age 14. * Patient is currently on OCP, was previously on Depo-Provera. Pertinent denials include: Denies a history of head injury or concussion Denies RLS, leg cramps, bruxism, snoring, and nocturia. Denies neck pain, back pain, leg cramps Denies dizziness, syncope, lightheadedness Denies a history of kidney stones Denies asthma, HTN, diabetes, thyroid dysfunction Results * Labs: Prior history of anemia with low iron and elevated ALT (40 on 11/26/2024) noted from lab results. * Tests & Diagnostics: Holter monitor evaluation suggested possible ?atrial fibrillation? during adolescence. Headache questionnaire: Age/time of onset: Middle school Preceding causes: pt states genetic- her mother and maternal grandmother have migraine Previous work-up: none Types of headache disorders: 1- varying severity. Typical headache characteristics: Prodrome symptoms: eyes hurting Aura: may occasionally see something out of the corner of her eye, some blurry vision Pain intensity: moderate-severe Location, quality, characteristics: Bifrontal, bitemporal, bilateral retroorbital- pressure pain. Occasionally, random stabbing pains in the temples. Associated symptoms: photophobia, allodynia, sometimes nausea, fatigue, cognitive difficulties, activity intolerance, Postdrome: denies Triggers: computer use Time of day: around lunchtime or early afternoon Duration and Frequency: 4 attacks per week. Each attachment lasts 4 hours up to 3 days. Headache impact on patient's quality of life: May miss social/personal activities, but tries to push through work. Current acute medication use/interventions: Excedrin or Sumatriptan 25mg if more severe- effect is slow and may need to repeat a dose, and causes sensation of warmth, dizziness, and sleepiness. Current preventative medication use: Amitriptyline 10mg since Oct 2025- initially helpful, but then stopped working. Tried Mag, but insurance stopped covering it. Current non-pharmacological interventions: rest, blue light filter glasses Headache Lifestyle Factors Hydration * Inadequate fluid intake, approximately two bottles of water daily. Exercise * Little exercise, however, she is active with her young daughter. Nutrition * The patient reports inadequate fluid consumption, approximately two bottles of water daily. Otherwise, the patient states she generally eats a well-balanced diet. 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 * Family status: Has a 3-year-old child. Sleep * Usual bedtime is at 11:00 PM. * Difficulty falling asleep at times; primarily struggles with staying asleep. * Wakes up at approximately 7:00 AM. * Experiences frequent nocturnal awakenings. * Caffeine intake is minimal, consumed only in the morning if at all. Substance Use History * Denies use of alcohol, cigarettes, vaping, marijuana, gummies, THC, or CBD. 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 * Sedentary work primarily at a desk involving computer use. [facility] Surgical History History of wisdom tooth extraction S/P tonsillectomy Family History Mother Hypertension Pre-diabetes Anemia Father Hypertension Social History Household Members: Family Housing: House Alcohol intake: never Patient Tobacco Use Status: Never used Tobacco e-Cigarette/Vaping Use: Never Used Second Hand Smoke Exposure: No service: No Current occupational status: employed Current occupational exposures/hazards: No Cognitive needs: No Hearing needs: No Vision needs: No Physical Exam Const Orientation/consciousness: patient oriented x3 Resp Effort & Inspection: normal respiratory effort and able to speak in complete sentences Neuro General: patient oriented x3 Cognition (Neuro): normal cognition Gait exam (Neuro): Normal gait present Motor exam (neuro): 5/5 motor strength present throughout Pupils: Normal pupillary reactivity/response: bilateral Psych Appearance: grossly normal Mental Status: mental status grossly normal Affect: normal affect Attitude: cooperative Thought process: Normal thought process present Telehealth Telehealth Telehealth Platform: Telephone Location of provider rendering services: practice address Location of patient: address on file Patient Identification confirmed using: Name, : Yes Telehealth method: voice only Patient verbally consented to treatment: Yes Patient verbally consented to billing insurance company: Yes Patient informed of any privacy concerns related to visit: Yes Assessment & Plan Assessment & Plan (1) Chronic migraine without aura without status migrainosus, not intractable: Comment: Occasional migraine-like headaches with probable peripheral visual aura Code(s): G43.709 - Chronic migraine without aura, not intractable, without status migrainosus Category: Medical (2) Visual aura: Comment: Likely migraine aura Code(s): H53.9 - Unspecified visual disturbance Category: Medical (3) Blurry vision, bilateral: Comment: improved with new glasses Code(s): H53.8 - Other visual disturbances Category: Medical (4) Fatigue: Code(s): R53.83 - Other fatigue Category: Medical Qualifiers: Fatigue type: unspecified Qualified Code(s): R53.83 - Other fatigue Plan During today?s visit, we reviewed the MRI findings of low-lying cerebellar tonsils, which are likely not related to her previously worsening headache symptoms. However, reviewed signs and symptoms to notify us of, such as headache, exacerbated by the Valsalva maneuver. Reviewed EKG results, which were unremarkable. Reviewed for lab work, which showed mildly low ferritin level, for which she has started on iron supplementation with good effect. * Continue Garrison gluconate 324 mg daily, taken with ascorbic acid 500 mg daily * We will recheck labs before her follow-up appointment. She has undergone a comprehensive eye exam, and she has new glasses, which have been beneficial. * Follow-up eye exam to schedule. Future considerations: Sleep study For overall headache management: * Optimize good self-care, including but not limited to maintaining a healthy diet, adequate fluid intake, adequate sleep, and engaging in regular physical activity. * Track headaches and both positive and negative effects of your headache treatment trials, especially after any treatment regimen changes. * Migraine [employer] is one of many headache tracking apps. * A simple paper calendar is also a good option. * Non-pharmacological interventions which may help to alleviate your headache attack frequency, severity, and associated symptoms: * For light sensitivity: blue light or FL-41 blue light filtering glasses, green glasses, green light therapy. For acute (as needed) headache treatment: It is important to take acute medications at the first sign of headache. However, please be aware that frequently using most acute medications may increase the frequency of your headache attacks, as well as make your other treatments less effective.. * Discontinue sumatriptan 25 mg- not tolerated * Continue Naratriptan 2.5mg tab, 1/2 - 1 tab (1.25-2.5mg) at onset of headache, may repeat in 4 hours. Max of 2 tabs (5mg) per 24 hours. * If needed, may take naratriptan with mwhm-kkd-ydysacn (OTC) Tylenol 650 - 1000 mg every 4 -6 hours, or Ibuprofen (liquigel) 600mg every 6 hours, or N aproxen (liquigel) 440mg every 12 hrs as needed. Previous acute migraine medication trials: Sumatriptan 25 mg-not tolerated, caused bothersome warmth strange sensation. Acute migraine medication contraindications: None at this time For headache prevention medication: Preventative medications should be taken routinely as prescribed for best effect, it may take several weeks for full effect to take effect. * Continue Riboflavin 400mg daily in the morning * This is generally well tolerated, however some people may experience mild abdominal discomfort from use. * Resume Magnesium 400mg daily at bedtime * Magnesium comes in many subtypes, such as magnesium oxide, glycinate, citrate, and even try magnesium combinations. Additionally magnesium comes in many forms, including tablets, capsules, powders or even liquid formulations. There is not a specific magnesium subtype or form known to be significantly more effective than another. Rather, the magnesium subtype inform that you best tolerate, is the best version for you. * Possible side effects of magnesium include, but are not limited to, GI upset, abdominal cramping, loose stools, and diarrhea * Discontinue Amitriptyline 25 mg daily at 9 p.m. * Start amitriptyline 25 mg tab, 1.5 tabs daily at 9 PM for two weeks, then increase to two tabs daily at 9 PM. * Potential side effects include but are not limited to fatigue, cardiac arrhythmias, mood changes. Previous migraine prevention medication trials: Amitriptyline 10-25 mg-ineffe ctive w/o s/e. Migraine prevention medication contraindications: None at this time We will follow-up upon review of above and with a follow-up clinic visit in 6 months or sooner as needed. Medications: Changed From magnesium oxide 400 mg PO BEDTIME 30 days 30 tabs 0RF To magnesium oxide 400 mg PO BEDTIME 90 tabs 4RF 90 days From amitriptyline At 9 p.m. 25 mg PO BEDTIME 90 days 90 tabs 1RF To amitriptyline At 9 p.m. 50 mg (2 x 25 mg) PO BEDTIME 180 tabs 1RF 90 days Refilled ascorbic acid (vitamin C) Take with iron supplement 500 mg PO DAILY 90 caps 1RF 90 days D50.9 - Iron deficiency anemia, unspecified Discontinued amitriptyline Discontinued Reason: Doctor's Order 10 mg PO BEDTIME 30 days 30 tabs 6RF G43.909 - Migraine, unspecified, not intractable, without status migrainosus Coding Level of Care Code Est Pt Level 4 (23295) Diagnoses Chronic migraine without aura without status migrainosus, not intractable G43.709 Visual aura H53.9 Blurry vision, bilateral H53.8 Fatigue, unspecified type R53.83 Fatigue type: unspecified
--- OUTSIDE RECORDS SUMMARY | 2025-11-04 19:02 | XMS_ITS | Clinical Summary ---
Author Organization [facility] [address] [place] [address] [place] [id number] Phone Care Team Providers Care Explosive Ordnance Specialist Name Role Phone Janet Castillo MD Primary Care Provider [phone] Allergies No known active allergies Medications cholecalciferol (VITAMIN D-3) 50 mcg (2,000 unit) capsule Take 1 Tablet by mouth daily. 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 For example, child abuse worker or elderly care for an older [...] te Yousuf Carlin and CNM Complications:None Delivery Location:[facility] Last Filed Vital Signs Vital Sign [...] Cervical Cancer Screening: Pap Smear 05/05/2027 05/05/2024, 05/05/2024 DTaP,Tdap,and Td Vaccines (8 - [...] Associated Diagnosis Comments GONORRHEA/CHLAMYDIA SCRREENING Routine 09/23/2024 PAP SMEAR Routine 05/05/2024 HEPATITIS C SCREENING Routine 10/29/2021 HIV SCREENING Routine 10/29/2021 from Last 3 Months or Most Recently Relevant to Health Maintenance Results * Gonorrhea/Chlamydia Screening (09/23/2024) Gonorrhea/Chla mydia Screening Abstracted [facility] Provider MD HEALTH MAINTENANCE Final Result * Pap Smear (05/05/2024) Pap smear Negative, Abstracted [facility] Provider HEALTH MAINTENANCE Final Result * HIV Screening (10/29/2021) HIV Screening Abstracted [facility] Provider HEALTH MAINTENANCE Final Result * Hepatitis C Screening (10/29/2021) Hepatitis C Screening Abstracted [facility] Provider HEALTH MAINTENANCE Final Result from Last 3 Months or Most Recently Relevant to Health Maintenance Insurance [facility] [employer] Care Teams Explosive Ordnance Specialist Relationship Specialty Start Date End Date Janet Castillo MD [address] [place] [address] , [address] [facility] BRANT Navarro PCP - General Internal Medicine 11/11/24
--- OUTSIDE RECORDS SUMMARY | 2025-11-04 19:02 | XMS_ITS | Clinical Summary ---
Author Organization [facility] Address [address] [place] [address] Phone Care Team Providers Care Florist Designer Name Role Phone Mustapha Sena MD Unavailable [phone] Carole Polanco Primary Care Provider [phone] Allergies No known active allergies Medications drospirenone-eth [...] 2025 12/28/2012, 2003 COVID-19 VACCINE ( - 2024-2 6 season) 2025 HIB VACCINES Completed 04/06/2004, 09/24, 2003, Additional history exists PNEUMOCOCCAL VACCINES (0-49 years) Completed 07/12/2004, 2003, 2003 HEPATITIS A VACCINES Completed 05/21/2012, 04/30/20 11 HPV VACCINES Completed 03/10/2018, 01/30/2017 MENINGOCOCCAL VACCINES (ACWY) Completed 03/25/2019, 01/30/2017 Medical Devices Not on file Insurance [employer] P[employer] PPO [employer] PPO [employer] PPO [employer] PPO [employer] PPO C[employer] PPO [employer] PPO [employer] PPO Care Teams Florist Designer Relationship Specialty Start Date End Date Carole Polanco PA [address] [place] [id number] PCP - General Unknown Provider Specialty 11/02/19 Mustapha Sena MD [address] [place] [id number] [email or web address] Pediatric Cardiology 11/02/19 Additional Source Comments The information contained in this document represents components of the legal health record. It is not the complete legal health record.[facility]
== END 2025-11-04 15:12 | disposition home or self-care (01) ==
LOC: HO.HSMS 13:35
PROVIDERS: PCP Internal Medicine; Visit Provider Nurse Practitioner Family
DX: G43.709 Chronic migraine without aura, not intractable, without status migrainosus (principal); H53.9 Unspecified visual disturbance; H53.8 Other visual disturbances; R53.83 Other fatigue
CPT/HCPCS: 99214

== ENCOUNTER → 2025-11-04 13:35 | Outpatient (BNVA) | payer OTHER, SELFPAY | PROVIDERS: PCP Internal Medicine; Visit Provider Nurse Practitioner Family | DX: G43.709 Chronic migraine without aura, not intractable, without status migrainosus (principal); H53.8 Other visual disturbances; R53.83 Other fatigue; Z79.899 Other long term (current) drug therapy | CPT/HCPCS: 99212 ==